=== PATIENT | male | born 1950 | race American Indian/Alaskan Native ===

== ENCOUNTER 2018-02-01 20:47 | Emergency (ER) | payer MEDICARE ==
[2018-02-01 21:17] VITALS: BMI 27.7
[2018-02-01 21:28] VITALS: RESP 18
--- NOTE | 2018-02-01 21:56 | ED PDOC ---
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 Patient states he was initially seen at [facility] s/p [facility] and treated, sent to [facility] for rehab for 1.5 months and was discharged 3 days ago. Patient states he was at home today watching wrestling on TV while laying on the cough and as he turned to reposition himself when he fell of the couch. Patient states that he usually has his girlfriend help him move and get around his home, but she had left to go to the store and returned after 30 minutes. Girlfriend found the patient on the floor and called EMS. Patient states when he fell, he injured his left hand and had pain initially but denies any pain currently. Patient states left-sided weakness, however he does have sensation to the left-side of his body. Patient denies any history of loss of consciousness, headache, neck pain, back pain, hip pain, other pain/injury, feeling dizzy or CP prior to the fall, or any other complaints. Symptom Onset: Gradual Symptom Course: Unchanged Activities at Onset: Light Context: Home <Katie Candelaria PA-C - Last Filed: 02/02/18 00:46> - General Chief Complaint: Trauma Time Seen by Provider: 02/01/18 21:56 Past Medical History - Provider Review Nursing Documentation Reviewed: Yes - Cardiac Hx Hypertension: Yes - Neurological HX Cerebrovascular Accident: Yes - HEENT Hx HEENT Disorder: No - Endocrine/Metabolic Hx Endocrine Disorders: No - Hematological/Oncological Hx Blood Disorders: No - Integumentary Hx Dermatological Disorder: No - Musculoskeletal/Rheumatological Hx Musculoskeletal Disorders: No - Gastrointestinal Hx Gastrointestinal Disorders: No - Genitourinary/Gynecological Hx Genitourinary Disorders: No - Psychiatric Hx Psychophysiologic Disorder: No Hx Substance Use: No <Katie Candelaria PA-C - Last Filed: 02/02/18 00:46> Family/Social History - Physician Review Nursing Documentation Reviewed: Yes Family/Social History: Unknown Family HX Smoking Status: Former Smoker Hx Alcohol Use: No Hx Substance Use: No <Katie Candelaria PA-C - Last Filed: 02/02/18 00:46> Allergies/Home Meds <Pollo Lopez - Last Filed: 02/01/18 22:22> <Katie Candelaria PA-C - Last Filed: 02/02/18 00:46> Allergies/Adverse Reactions: Allergies No Known Allergies Allergy (Verified 02/01/18 21:07) Home Medications: Home Meds Medication Instructions Recorded Confirmed Unobtainable 02/01/18 02/01/18 Review of Systems - Physician Review All systems were reviewed & negative as marked: Yes - Review of Systems Constitutional: Normal. absent: Fevers Eyes: Normal. absent: Vision Changes Respiratory: Normal. absent: SOB Cardiovascular: Normal. absent: Chest Pain Musculoskeletal: Arthralgias (+left hand pain) Neurological: Normal. absent: Headache, Dizziness <Katie Candelaria PA-C - Last Filed: 02/02/18 00:46> Physical Exam Vital Signs Pulse Resp BP Pulse Ox 02/01/18 21:27 70 18 136/87 97 <Pollo Lopez - Last Filed: 02/01/18 22:22> Vital Signs Reviewed: Yes Vital Signs Pulse Resp BP Pulse Ox 02/01/18 21:27 70 18 136/87 97 Temperature: Afebrile Blood Pressure: Normal Pulse: Regular Respiratory Rate: Normal Appearance: Positive for: Well-Appearing, Non-Toxic, Comfortable Pain Distress: None Mental Status: Positive for: Alert and Oriented X 3 - Systems Exam Head: Present: Atraumatic, Normocephalic Pupils: Present: PERRL Extroacular Muscles: Present: EOMI Conjunctiva: Present: Normal Mouth: Present: Moist Mucous Membranes Neck: Present: Normal Range of Motion. No: MIDLINE TENDERNESS Respiratory/Chest: Present: Clear to Auscultation, Good Air Exchange. No: Respiratory Distress, Accessory Muscle Use Cardiovascular: Present: Regular Rate and Rhythm, Normal S1, S2. No: Murmurs Abdomen: No: Tenderness, Distention, Peritoneal Signs Back: Present: Normal Inspection Upper Extremity: Present: NORMAL PULSES, Neurovascularly Intact, Capillary Refill < 2s, Other (Left arm weakness, 0/5, as compared to the right side). No: Cyanosis, Edema, Tenderness, Swelling Lower Extremity: Present: NORMAL PULSES, Neurovascularly Intact, Capillary Refill < 2 s, Other (Left leg weakness 2/5, as compared to the right side). No: Edema, Tenderness, Swelling Neurological: Present: GCS=15, CN II-XII Intact, Speech Normal, Normal Sensory Function Skin: Present: Warm, Dry, Normal Color. No: Rashes Psychiatric: Present: Alert, Oriented x 3, Normal Insight, Normal Concentration <Katie Candelaria PA-C - Last Filed: 02/02/18 00:46> Medical Decision Making ED Course and Treatment: 02/02/18 00:44 Patient had a mechanical fall off of his couch prompting ER visit. He has no obvious injuries and has no complaints of pain. He has no other complaints. Patient is stable for d/c and requires no other intervention at this time. <Katie Candelaria PA-C - Last Filed: 02/02/18 00:46> - PA / BRAKE SHOE REBUILDER / Resident Statement LIBAN has reviewed & agrees with the documentation as recorded. LIBAN has examined the patient and agrees with the treatment plan. <Pollo Lopez - Last Filed: 02/01/18 22:22> - PA / BRAKE SHOE REBUILDER / Resident Statement LIBAN has reviewed & agrees with the documentation as recorded. - Scribe Statement The provider has reviewed the documentation as recorded by the Blanquitaibmendel De Leon All medical record entries made by the Blanquitaibmendel were at my direction and personally dictated by me. I have reviewed the chart and agree that the record accurately reflects my personal performance of the history, physical exam, medical decision making, and the department course for this patient. I have also personally directed, reviewed, and agree with the discharge instructions and disposition. <Katie Candelaria PA-C - Last Filed: 02/02/18 00:46> Disposition/Present on Arrival <Pollo Lopez - Last Filed: 02/01/18 22:22> - Present on Arrival Any Indicators Present on Arrival: No History of DVT/PE: No History of Uncontrolled Diabetes: No Urinary Catheter: No History of Decub. Ulcer: No History Surgical Site Infection Following: None - Disposition Have Diagnosis and Disposition been Completed?: Yes Disposition Time: 21:56 <Katie Candelaria PA-C - Last Filed: 02/02/18 00:46> - Disposition Diagnosis: Fall Disposition: HOME/ ROUTINE Patient Problems: Current Active Problems Problem Status Onset Fall Acute Condition: STABLE Discharge Instructions (ExitCare): Preventing Falls Additional Instructions: Thank you for letting us take care of you today. You were evaluated for fall. The emergency medical care you received today was directed at your acute symptoms. Return to the Emergency Department if your symptoms worsen, do not improve, or if you have any other problems. Please contact your doctor in 2 days for re-evaluation and follow up. Bring any paperwork you were given at discharge with you along with any medications you are taking to your follow up visit. Our treatment cannot replace ongoing medical care by a primary care provider (PCP) outside of the emergency department. Thank you for allowing the [facility] team to be part of your care today. Referrals: PCP,NO [Primary Care Provider] - Follow up with primary Forms: [employer] (Czech)
[2018-02-02 01:34] VITALS: BP 143/88; PULSE 88; O2SAT 99
== END 2018-02-02 03:23 | disposition home or self-care (01) ==
LOC: ED 20:47
DX: Z04.3 Encounter for examination and observation following other accident (principal); W07.XXXA Fall from chair, initial encounter; Y92.008 Other place in unspecified non-institutional (private) residence as the place of occurrence of the external cause

== ENCOUNTER 2018-02-02 03:08 | Emergency (ER) | payer MEDICARE ==
[2018-02-02 03:24] VITALS: BMI 28.5
--- NOTE | 2018-02-02 03:33 | ED PDOC ---
Arrival/HPI - General Chief Complaint: Medical Clearance Time Seen by Provider: 02/02/18 03:26 Historian: Patient - History of Present Illness Narrative History of Present Illness (Text): 02/02/18 03:30 Roscoe Bautista is a 67 year old male, whose past medical history includes CVA with residual left-sided weakness, who presents to the Emergency department brought in by EMS after patient was discharged home earlier tonight and no one was home to receive the patient. EMS were unable to get in to the patient's apartment building and returned to the Emergency department with the patient. Patient was seen earlier tonight following a fall off of his couch and discharged home. Patient usually requires assistance from his girlfriend to move and get around the house. Patient denies any other complaints at this time. Patient denies any fever, chills, chest pain, shortness of breath, nausea, vomiting, diarrhea, urinary symptoms, back pain, neck pain, headache, dizziness, or any other complaints. Symptom Onset: Gradual Symptom Course: Unchanged Activities at Onset: Light Context: Home Past Medical History - Provider Review Nursing Documentation Reviewed: Yes - Cardiac Hx Hypertension: Yes - Neurological HX Cerebrovascular Accident: Yes - HEENT Hx HEENT Disorder: No - Endocrine/Metabolic Hx Endocrine Disorders: No - Hematological/Oncological Hx Blood Disorders: No - Integumentary Hx Dermatological Disorder: No - Musculoskeletal/Rheumatological Hx Musculoskeletal Disorders: No - Gastrointestinal Hx Gastrointestinal Disorders: No - Genitourinary/Gynecological Hx Genitourinary Disorders: No - Psychiatric Hx Psychophysiologic Disorder: No Hx Substance Use: No Family/Social History - Physician Review Nursing Documentation Reviewed: Yes Family/Social History: Unknown Family HX Smoking Status: Former Smoker Hx Alcohol Use: No Hx Substance Use: No Allergies/Home Meds Allergies/Adverse Reactions: Allergies No Known Allergies Allergy (Verified 02/02/18 03:26) Home Medications: Home Meds Medication Instructions Recorded Confirmed Unobtainable 02/01/18 02/01/18 Review of Systems - Physician Review All systems were reviewed & negative as marked: Yes - Review of Systems Constitutional: Normal. absent: Fevers Eyes: Normal ENT: Normal Respiratory: Normal. absent: SOB, Cough Cardiovascular: Normal. absent: Chest Pain Gastrointestinal: Normal. absent: Abdominal Pain, Diarrhea, Nausea, Vomiting Genitourinary Male: Normal. absent: Dysuria, Frequency, Hematuria, Urinary Output Changes Musculoskeletal: Normal. absent: Back Pain, Neck Pain Skin: Normal. absent: Rash Neurological: Normal. absent: Headache, Dizziness Endocrine: Normal Hemo/Lymphatic: Normal Psychiatric: Normal Physical Exam Vital Signs Reviewed: Yes Temperature: Afebrile Blood Pressure: Normal Pulse: Regular Respiratory Rate: Normal Appearance: Positive for: Well-Appearing, Non-Toxic, Comfortable Pain Distress: None Mental Status: Positive for: Alert and Oriented X 3 - Systems Exam Head: Present: Atraumatic, Normocephalic Pupils: Present: PERRL Extroacular Muscles: Present: EOMI Conjunctiva: Present: Normal Mouth: Present: Moist Mucous Membranes Neck: Present: Normal Range of Motion Respiratory/Chest: Present: Clear to Auscultation, Good Air Exchange. No: Respiratory Distress, Accessory Muscle Use Cardiovascular: Present: Regular Rate and Rhythm, Normal S1, S2. No: Murmurs Abdomen: No: Tenderness, Distention, Peritoneal Signs Back: Present: Normal Inspection Upper Extremity: Present: Other (Chronic residual left-upper extremity weakness). No: Cyanosis, Edema Lower Extremity: Present: Other (Chronic residual left-lower extremity weakness). No: Edema Neurological: Present: GCS=15, CN II-XII Intact, Speech Normal Skin: Present: Warm, Dry, Normal Color. No: Rashes Psychiatric: Present: Alert, Oriented x 3, Normal Insight, Normal Concentration Medical Decision Making ED Course and Treatment: 02/02/18 03:30 Impression: 67 year old male brought in after no one was home to receive the patient following discharge earlier tonight. Plan: -- Reassess and disposition Progress Notes: Pt awaiting access to his apartment in the morning when pt's partner is available to allow entrance. Patient had a mechanical fall off of his couch prompting ER visit. He has no obvious injuries and has no complaints of pain. He has no other complaints. Patient is stable for d/c and requires no other intervention at this time. - Scribe Statement Stephanie De Leon All medical record entries made by the Scribe were at my direction and personally dictated by me. I have reviewed the chart and agree that the record accurately reflects my personal performance of the history, physical exam, medical decision making, and the department course for this patient. I have also personally directed, reviewed, and agree with the discharge instructions and disposition. Disposition/Present on Arrival - Present on Arrival Any Indicators Present on Arrival: No History of DVT/PE: No History of Uncontrolled Diabetes: No Urinary Catheter: No History of Decub. Ulcer: No History Surgical Site Infection Following: None - Disposition Have Diagnosis and Disposition been Completed?: Yes Diagnosis: Fall Disposition: HOME/ ROUTINE Disposition Time: 06:02 Patient Problems: Current Active Problems Problem Status Onset Fall Acute Condition: STABLE Additional Instructions: Thank you for letting us take care of you today. You were evaluated for fall. The emergency medical care you received today was directed at your acute symptoms. Return to the Emergency Department if your symptoms worsen, do not improve, or if you have any other problems. Please contact your doctor in 2 days for re-evaluation and follow up. Bring any paperwork you were given at discharge with you along with any medications you are taking to your follow up visit. Our treatment cannot replace ongoing medical care by a primary care provider (PCP) outside of the emergency department. Thank you for allowing the [email or web address] team to be part of your care today. Forms: [employer] (Croatian)
[2018-02-02 06:50] VITALS: RESP 18
[2018-02-02 09:22] VITALS: O2SAT 99
[2018-02-02 09:29] VITALS: BP 154/98; PULSE 78; TEMP 98
== END 2018-02-02 09:29 | disposition home or self-care (01) ==
LOC: ED 03:08
DX: Z04.3 Encounter for examination and observation following other accident (principal); W07.XXXD Fall from chair, subsequent encounter

== ENCOUNTER 2018-02-03 01:12 | Emergency (ER) | payer MEDICARE ==
[2018-02-03 01:12] VITALS: BMI 27.7
--- NOTE | 2018-02-03 02:00 | ED PDOC ---
Arrival/HPI - General Chief Complaint: Trauma Time Seen by Provider: 02/03/18 01:19 Historian: Patient - History of Present Illness Narrative History of Present Illness (Text): 02/03/18 02:00 Roscoe Bautista is a 67 year old male, whose past medical history includes CVA with residual left-sided weakness, who presents to the Emergency department brought in by EMS after he slid off the couch. Patient states he lives at home with his girlfriend, and was sleeping on the couch when he slid off tonight. Patient's girlfriend called EMS to bring patient to the ED. Patient states he accidentally slid from the couch and denies any injuries or somatic complaints, but his girlfriend insisted he come to the ER. Patient denies any loss of consciousness, head trauma, headache, neck pain, back pain, dizziness, nausea, vomiting, or any other complaints. Patient states he argues with his girlfriend and is requesting to speak with social science instructor. Symptom Onset: Gradual Symptom Course: Unchanged Activities at Onset: Light Context: Home Past Medical History - Provider Review Nursing Documentation Reviewed: Yes - Cardiac Hx Hypertension: Yes - Neurological HX Cerebrovascular Accident: Yes - HEENT Hx HEENT Disorder: No - Endocrine/Metabolic Hx Endocrine Disorders: No - Hematological/Oncological Hx Blood Disorders: No - Integumentary Hx Dermatological Disorder: No - Musculoskeletal/Rheumatological Hx Musculoskeletal Disorders: No - Gastrointestinal Hx Gastrointestinal Disorders: No - Genitourinary/Gynecological Hx Genitourinary Disorders: No - Psychiatric Hx Psychophysiologic Disorder: No Hx Substance Use: No Family/Social History - Physician Review Nursing Documentation Reviewed: Yes Family/Social History: Unknown Family HX Smoking Status: Former Smoker Hx Alcohol Use: No Hx Substance Use: No Allergies/Home Meds Allergies/Adverse Reactions: Allergies No Known Allergies Allergy (Verified 02/03/18 01:21) Home Medications: Home Meds Medication Instructions Recorded Confirmed Unobtainable 02/01/18 02/03/18 Review of Systems - Physician Review All systems were reviewed & negative as marked: Yes - Review of Systems Constitutional: Normal. absent: Fevers Eyes: Normal ENT: Normal Respiratory: Normal. absent: SOB, Cough Cardiovascular: Normal. absent: Chest Pain Gastrointestinal: Normal. absent: Abdominal Pain, Diarrhea, Nausea, Vomiting Genitourinary Male: Normal. absent: Dysuria, Frequency, Hematuria, Urinary Output Changes Musculoskeletal: Normal. absent: Back Pain, Neck Pain Skin: Normal. absent: Rash Neurological: Normal. absent: Headache, Dizziness Endocrine: Normal Hemo/Lymphatic: Normal Psychiatric: Normal Physical Exam Vital Signs Reviewed: Yes Vital Signs Temp Pulse Resp BP Pulse Ox 02/03/18 01:18 98.3 F 85 18 128/78 100 Temperature: Afebrile Blood Pressure: Normal Pulse: Regular Respiratory Rate: Normal Appearance: Positive for: Well-Appearing, Non-Toxic, Comfortable Pain Distress: None Mental Status: Positive for: Alert and Oriented X 3 - Systems Exam Head: Present: Atraumatic, Normocephalic Pupils: Present: PERRL Extroacular Muscles: Present: EOMI Conjunctiva: Present: Normal Mouth: Present: Moist Mucous Membranes Neck: Present: Normal Range of Motion Respiratory/Chest: Present: Clear to Auscultation, Good Air Exchange. No: Respiratory Distress, Accessory Muscle Use Cardiovascular: Present: Regular Rate and Rhythm, Normal S1, S2. No: Murmurs Abdomen: No: Tenderness, Distention, Peritoneal Signs Back: Present: Normal Inspection Upper Extremity: Present: Normal Inspection. No: Cyanosis, Edema Lower Extremity: Present: Normal Inspection. No: Edema Neurological: Present: GCS=15, CN II-XII Intact, Speech Normal Skin: Present: Warm, Dry, Normal Color. No: Rashes Psychiatric: Present: Alert, Oriented x 3, Normal Insight, Normal Concentration Medical Decision Making ED Course and Treatment: 02/03/18 02:00 Impression: 67 year old male presents after sliding off couch, denies any complaints, requesting to speak with social science instructor. Plan: -- Reassess and disposition Prior Visits: Notes and results from previous visits were reviewed. Progress Notes: 02/03/18 07:[address] Sweet, pending social science instructor consult. - Scribe Statement The provider has reviewed the documentation as recorded by the Scribmendel De Leon All medical record entries made by the Scribe were at my direction and pe rsonally dictated by me. I have reviewed the chart and agree that the record accurately reflects my personal performance of the history, physical exam, medical decision making, and the department course for this patient. I have also personally directed, reviewed, and agree with the discharge instructions and disposition. Disposition/Present on Arrival - Present on Arrival Any Indicators Present on Arrival: No History of DVT/PE: No History of Uncontrolled Diabetes: No Urinary Catheter: No History of Decub. Ulcer: No History Surgical Site Infection Following: None - Disposition Have Diagnosis and Disposition been Completed?: No Diagnosis: Fall Disposition Time: 07:00 Condition: STABLE Forms: [employer] (Albanian)
--- NOTE | 2018-02-03 07:18 | ED PDOC ---
Physical Exam Vital Signs Temp Pulse Resp BP Pulse Ox 02/03/18 05:37 85 97 H 20 L 02/03/18 03:37 79 18 152/84 H 97 02/03/18 01:18 98.3 F 85 18 128/78 100 Medical Decision Making ED Course and Treatment: Signout obtained by Dr. hZou with patient pending social work consult. 02/03/18 09:00 Spoke to social work manager who will come down to speak to patient. 02/03/18 13:01 Spoke to social work manager who after consulting with Lyudmila, states patient may go back home. He was Disposition/Present on Arrival - Present on Arrival Any Indicators Present on Arrival: No History of DVT/PE: No History of Uncontrolled Diabetes: No Urinary Catheter: No History of Decub. Ulcer: No History Surgical Site Infection Following: None - Disposition Have Diagnosis and Disposition been Completed?: Yes Diagnosis: Fall, Inappropriate behavior Disposition Time: 12:59 Patient Plan: Discharge Patient Problems: Current Active Problems Problem Status Onset Fall Acute Inappropriate behavior Acute Condition: STABLE Discharge Instructions (ExitCare): Preventing Falls in the Older Adult Referrals: Nicci Cobb MD [Medical Doctor] - Follow up with primary [facility] at [facility] [Outside] - Follow up with primary Forms: [employer] (Estonian)
[2018-02-03 14:24] VITALS: RESP 17; TEMP 98.1
[2018-02-03 17:00] VITALS: BP 150/89; PULSE 82; O2SAT 97
== END 2018-02-03 17:00 | disposition home or self-care (01) ==
LOC: ED 01:12
DX: Z04.3 Encounter for examination and observation following other accident (principal); W07.XXXA Fall from chair, initial encounter; Y92.008 Other place in unspecified non-institutional (private) residence as the place of occurrence of the external cause

== ENCOUNTER 2018-02-06 03:14 | Emergency (ER) | payer MEDICARE ==
[2018-02-06 03:14] VITALS: BMI 27.7
--- NOTE | 2018-02-06 04:21 | ED PDOC ---
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 Patient states he fell asleep on the couch and when he turned, he slid and fell over. Patient's girlfriend called EMS to bring patient to the ED. Patient reports he slips off the couch a lot. He denies any head injury and denies being on blood thinners. Patient is complaining of chronic leg pain, but denies any fever, chills, chest pain, shortness of breath, nausea, vomiting, diarrhea, urinary symptoms, back pain, neck pain, headache, dizziness, or any other complaints. PMD: Dr. Pereira Time/Duration: Prior to Arrival Symptom Onset: Sudden Activities at Onset: Light, Sleeping Context: Home Past Medical History - Provider Review Nursing Documentation Reviewed: Yes - Cardiac Hx Hypertension: Yes - Neurological HX Cerebrovascular Accident: Yes - HEENT Hx HEENT Disorder: No - Endocrine/Metabolic Hx Endocrine Disorders: No - Hematological/Oncological Hx Blood Disorders: No - Integumentary Hx Dermatological Disorder: No - Musculoskeletal/Rheumatological Hx Musculoskeletal Disorders: No - Gastrointestinal Hx Gastrointestinal Disorders: No - Genitourinary/Gynecological Hx Genitourinary Disorders: No - Psychiatric Hx Psychophysiologic Disorder: No Hx Substance Use: No - Anesthesia Hx Anesthesia: No Family/Social History - Physician Review Nursing Documentation Reviewed: Yes Family/Social History: No Known Family HX Smoking Status: Former Smoker Hx Alcohol Use: No Hx Substance Use: No Allergies/Home Meds Allergies/Adverse Reactions: Allergies No Known Allergies Allergy (Verified 02/03/18 01:21) Home Medications: Home Meds Medication Instructions Recorded Confirmed RX: No Known Home Med 02/06/18 02/06/18 Review of Systems - Physician Review All systems were reviewed & negative as marked: Yes - Review of Systems Constitutional: absent: Fevers, Other (Chills) Respiratory: absent: SOB Cardiovascular: absent: Chest Pain Gastrointestinal: absent: Abdominal Pain, Diarrhea, Nausea Genitourinary Male: absent: Dysuria, Frequency, Hematuria Musculoskeletal: absent: Back Pain, Neck Pain, Other (chronic leg pain) Neurological: absent: Headache, Dizziness Physical Exam Vital Signs Reviewed: Yes Vital Signs Temp Pulse Resp BP Pulse Ox 02/06/18 03:37 98.0 F 75 17 163/90 H 98 Temperature: Afebrile Blood Pressure: Hypertensive Pulse: Regular Respiratory Rate: Normal Appearance: Positive for: Well-Appearing, Non-Toxic, Comfortable Pain Distress: None Mental Status: Positive for: Alert and Oriented X 3 - Systems Exam Head: Present: Atraumatic, Normocephalic Pupils: Present: PERRL Extroacular Muscles: Present: EOMI Conjunctiva: Present: Normal Mouth: Present: Moist Mucous Membranes Neck: Present: Normal Range of Motion Respiratory/Chest: Present: Clear to Auscultation, Good Air Exchange. No: Respiratory Distress, Accessory Muscle Use Cardiovascular: Present: Regular Rate and Rhythm, Normal S1, S2. No: Murmurs Abdomen: No: Tenderness, Distention, Peritoneal Signs Back: Present: Normal Inspection Upper Extremity: Present: Normal Inspection. No: Cyanosis, Edema Lower Extremity: Present: Normal Inspection. No: Edema Neurological: Present: GCS=15, CN II-XII Intact, Speech Normal Skin: Present: Warm, Dry, Normal Color. No: Rashes Psychiatric: Present: Alert, Oriented x 3, Normal Insight, Normal Concentration Medical Decision Making ED Course and Treatment: 02/06/18 04:15 Impression: 67 year old male presents for evaluation s/p slid off couch prior to arrival. Negative [place] ankle to the right and left leg. Plan: -- Tylenol -- Reassess and disposition Prior Visits: Notes and results from previous visits were reviewed. Patient was last seen in the emergency department on 02/03/18 presents s/p slid off couch. Patient spoke to social media content manager and was discharged home. Progress Notes: reassessed: pt in NAD, remains N/V intact in distal LE. Normal Neuro exam. Clear for d/c home - Scribe Statement The provider has reviewed the documentation as recorded by the Liliana Joseph Provider Scribe Attestation: All medical record entries made by the Scribe were at my direction and personally dictated by me. I have reviewed the chart and agree that the record accurately reflects my personal performance of the history, physical exam, medical decision making, and the department course for this patient. I have also personally directed, reviewed, and agree with the discharge instructions and disposition. Disposition/Present on Arrival - Present on Arrival Any Indicators Present on Arrival: No History of DVT/PE: No History of Uncontrolled Diabetes: No Urinary Catheter: No History of Decub. Ulcer: No History Surgical Site Infection Following: None - Disposition Have Diagnosis and Disposition been Completed?: Yes Diagnosis: Chronic leg pain Disposition: HOME/ ROUTINE Disposition Time: 05:07 Condition: GOOD Discharge Instructions (ExitCare): Chronic Pain (DC) Additional Instructions: REGIS DA SILVA, thank you for letting us take care of you today. Your provider was Cody Jasso and you were treated for LEG PAIN. The emergency medical care you received today was directed at your acute symptoms. If you were prescribed any medication, please fill it and take as directed. It may take several days for your symptoms to resolve. Return to the Emergency Department if your symptoms worsen, do not improve, or if you have any other problems. Please contact your doctor or call one of the physicians/clinics you have been referred to that are listed on the Patient Visit Information form that is included in your discharge packet. Bring any paperwork you were given at discharge with you along with any medications you are taking to your follow up visit. Our treatment cannot replace ongoing medical care by a primary care provider outside of the emergency department. Thank you for allowing the [facility] team to be part of your care today. If you had an X-Ray or CT scan: A Radiologist will review the ED reading if any change in treatment is needed we will contact you. If you had a blood, urine, or wound culture: It will take several days for the results, if any change in treatment is needed we will contact you. If you had an STI test: It will take 48 hours for the results. Please call after 1 week if you have not heard back. Referrals: Nicci Cobb MD [Medical Doctor] - Follow up with primary Forms: [employer] ([place])
[2018-02-06 09:14] VITALS: TEMP 97.6; O2SAT 98
[2018-02-06 09:39] VITALS: BP 145/86; PULSE 80; RESP 17
== END 2018-02-06 09:20 | disposition home or self-care (01) ==
LOC: ED 03:14
DX: G89.29 Other chronic pain (principal); M79.606 Pain in leg, unspecified; I10 Essential (primary) hypertension; Z87.891 Personal history of nicotine dependence

== ENCOUNTER 2018-02-09 20:01 | Inpatient (IN) | payer MEDICARE, OTHER ==
[2018-02-09 20:04] VITALS: BMI 27.7
--- NOTE | 2018-02-09 20:37 | ED PDOC ---
Arrival/HPI - General Historian: Patient - History of Present Illness Narrative History of Present Illness (Text): 02/09/18 20:34 67 y/o male, pmh including CVA with chronic lt. upper extremity weakness from the stroke 2 months ago and chronic history of frequent fall, nkda, send in by ambulance for mechanical fall. Pt. stated that he was resting on the couch, trying to get up to go bathroom and fall back down to the couch, been on going, seen in the ER about 2 days ago for fall, never had a follow up, no head/neck/back/extremity/chest/abdominal injury or pain, no LOC, no chest pain or shortness of breath, no night sweat, no dizziness, no change in vision, no other medical or psychological complaints. <Stan Petersen - Last Filed: 02/10/18 00:53> <Liam Leonard - Last Filed: 02/10/18 05:43> - General Chief Complaint: Trauma Time Seen by Provider: 02/09/18 20:22 Past Medical History - Provider Review Nursing Documentation Reviewed: Yes - Cardiac Hx Hypertension: Yes - Neurological HX Cerebrovascular Accident: Yes - HEENT Hx HEENT Disorder: No - Endocrine/Metabolic Hx Endocrine Disorders: No - Hematological/Oncological Hx Blood Disorders: No - Integumentary Hx Dermatological Disorder: No - Musculoskeletal/Rheumatological Hx Musculoskeletal Disorders: No - Gastrointestinal Hx Gastrointestinal Disorders: No - Genitourinary/Gynecological Hx Genitourinary Disorders: No - Psychiatric Hx Psychophysiologic Disorder: No Hx Substance Use: No - Anesthesia Hx Anesthesia: No <Stan Petersen - Last Filed: 02/10/18 00:53> Family/Social History - Physician Review Nursing Documentation Reviewed: Yes Family/Social History: Unknown Family HX Smoking Status: Former Smoker Hx Alcohol Use: No Hx Substance Use: No <Stan Petersen - Last Filed: 02/10/18 00:53> Allergies/Home Meds <Stan Petersen - Last Filed: 02/10/18 00:53> <Liam Leonard - Last Filed: 02/10/18 05:43> Allergies/Adverse Reactions: Allergies No Known Allergies Allergy (Verified 02/03/18 01:21) Home Medications: Home Meds Medication Instructions Recorded Confirmed RX: No Known Home Med 02/06/18 02/06/18 Review of Systems - Review of Systems Constitutional: absent: Fatigue, Fevers Eyes: absent: Vision Changes ENT: absent: Hearing Changes Respiratory: absent: SOB, Cough Cardiovascular: absent: Chest Pain Gastrointestinal: absent: Abdominal Pain, Nausea, Vomiting Musculoskeletal: absent: Arthralgias, Back Pain Skin: absent: Rash, Pruritis Neurological: absent: Headache, Dizziness Psychiatric: absent: Anxiety, Depression, Suicidal Ideation <Stan Petersen Q - Last Filed: 02/10/18 00:53> Physical Exam Vital Signs Reviewed: Yes Vital Signs Temp Pulse Resp BP Pulse Ox 02/09/18 20:18 98.6 F 98 H 18 153/96 H 99 Temperature: Afebrile Blood Pressure: Hypertensive Pulse: Regular Respiratory Rate: Normal Appearance: Positive for: Well-Appearing, Non-Toxic, Comfortable Pain Distress: None Mental Status: Positive for: Alert and Oriented X 3 - Systems Exam Head: Present: Atraumatic, Normocephalic, Other (no facial bony tenderness or swelling. ). No: Tenderness, Contusion, Swelling, Ecchymosis, Abrasion, Laceration Pupils: Present: PERRL Extroacular Muscles: Present: EOMI Conjunctiva: Present: Normal Ears: Present: NORMAL TM, Normal Canal. No: Erythema Mouth: Present: Moist Mucous Membranes Pharnyx: Present: Normal. No: ERYTHEMA, EXUDATE, TONSILS ENLARGED Nose (Internal): Present: Normal Inspection, No Active Bleeding. No: Rhinorrhea, Septal Hematoma, Epistaxis Neck: Present: Normal Range of Motion, Trachea Midline. No: Meningeal Signs, MIDLINE TENDERNESS, Paraspinal Tenderness, Lymphadenopathy Respiratory/Chest: Present: Clear to Auscultation, Good Air Exchange. No: Respiratory Distress, Accessory Muscle Use Cardiovascular: Present: Regular Rate and Rhythm, Normal S1, S2. No: Murmurs Abdomen: No: Tenderness, Distention, Peritoneal Signs, Rebound, Guarding Back: Present: Normal Inspection. No: CVA Tenderness, Midline Tenderness, Paraspinal Tenderness, Pain with Leg Raise, Decubitus Ulcer Upper Extremity: Present: Normal Inspection, Normal ROM, NORMAL PULSES, Neurovascularly Intact, Capillary Refill < 2s. No: Cyanosis, Edema, Tenderness, Swelling, Deformity Lower Extremity: Present: Normal Inspection, NORMAL PULSES, Normal ROM, Neurovascularly Intact, Capillary Refill < 2 s. No: Edema, Tenderness, Swelling, Deformity Neurological: Present: GCS=15, CN II-XII Intact, Speech Normal, Memory Normal, Other (LUE deficits from the stroke. ) Skin: Present: Warm, Dry, Normal Color. No: Rashes Psychiatric: Present: Alert, Oriented x 3, Normal Insight, Normal Concentration <Stan Petersen - Last Filed: 02/10/18 00:53> Vital Signs Temp Pulse Resp BP Pulse Ox 02/10/18 01:50 97 H 18 155/100 H 99 02/10/18 01:06 96 H 18 154/92 H 100 02/09/18 23:30 88 18 149/89 100 02/09/18 20:18 98.6 F 98 H 18 153/96 H 99 <Liam Leonard - Last Filed: 02/10/18 05:43> Medical Decision Making ED Course and Treatment: 02/09/18 20:38 -CT head -Labs -UA -Observe and reassess 02/09/18 23:45 -CT head: show infarcts are described above. No acute intracranial hemorrhage. The calvarium is intact. (discussed and reviewed with Dr. Leonard, agreed this is chronic infarct findings). Pt. has no new focal neurological deficits. -Labs show no acute findings -UA ordered and pending result. -Pt. has been falling consistently due to the weakness from the CVA 2 months ago, would need to be admitted for physical therapy and gait training. -All labs and radiology result discussed with the patient and he agreed to the admission. 02/10/18 00:12 -I spoke to Dr. Cobb, discussed about the case/labs/radiology result and frequent visit for the fall recently, would need to be over night observation and neurologist/PT evaluation. She would admit and continuous care. - RAD Interpretation Radiology Orders: 02/09/18 20:30 HEAD W/O CONTRAST [CT] Stat CT Head reviewed by radiologist, shows: BRAIN there are been several infarcts. There is an infarct within the left frontal lobe which appears nonrecent secondary to the lack of mass effect and sharp m argins. there is a moderately large poorly defined right lacunar infarct without hemorrhage which descends along the white matter tracts. there is volume loss in the right cerebral hemisphere resulting in asymmetric lateral ventricles. there is no intracranial hemorrhage, subdural collections, or midline shift. IMPRESSION infarcts are described above. No acute intracranial hemorrhage. The calvarium is intact. MRI for further evaluation as clinically warranted. Investigations Manager: Radiologist - EKG Interpretation EKG Interpretation (Text): 02/10/18 00:53 NSR @ 89 BPM, no ST elevation or depression, no T wave inversion. Interpreted by ED Physician: Yes Type: 12 lead EKG <Stan Petersen Q - Last Filed: 02/10/18 00:53> - Lab Interpretations Lab Results: 02/09/18 20:54 02/09/18 20:54 Lab Results 02/09/18 20:54: Troponin I 0.02 02/09/18 20:54: Total Creatine Kinase 116 02/09/18 20:54: Sodium 142, Potassium 4.3, Chloride 106, Carbon Dioxide 28, Anion Gap 12, BUN 18, Creatinine 1.0, Est GFR ( Amer) > 60, Est GFR (Non- Af Amer) > 60, Random Glucose 199 H, Calcium 9.2, Magnesium 1.8, Total Bilirubin 0.3, AST 25, ALT 21, Alkaline Phosphatase 77, Total Protein 7.1, Albumin 3.7, Globulin 3.4, Albumin/Globulin Ratio 1.1 02/09/18 20:54: WBC 5.4, RBC 4.75, Hgb 13.1 L, Hct 39.7 L, MCV 83.6, MCH 27.6, MCHC 33.0, RDW 13.2, Plt Count 205, MPV 10.0, Gran % 56.2, Lymph % (Auto) 32.6, [place] % (Auto) 5.3, Eos % (Auto) 5.7 H, Baso % (Auto) 0.2, Gran # 3.05, Lymph # (Auto) 1.8, [place] # (Auto) 0.3, Eos # (Auto) 0.3, Baso # (Auto) 0.01 - RAD Interpretation Radiology Orders: 02/09/18 20:30 HEAD W/O CONTRAST [CT] Stat - Medication Orders Current Medication Orders: Heparin Sodium (Porcine) (Heparin) 5,000 units SC Q8 LILLY; Protocol Insulin Human Lispro (Humalog Low) 0 units SC ACHS LILLY; Protocol Discontinued Medications Hydralazine HCl (Apresoline) 10 mg PO STAT STA Stop: 02/10/18 03:45 Last Admin: 02/10/18 03:57 Dose: 10 mg MAR Pulse and Blood Pressure Document 02/10/18 03:57 [facility] (Rec: 02/10/18 03:57 [id number]) Pulse Pulse Rate (60-90) 91 Blood Pressure Blood Pressure (100/60-150/90) 176/110 Labetalol HCl (Trandate) 10 mg IV ONCE ONE Stop: 02/10/18 05:03 <Liam Leonard - Last Filed: 02/10/18 05:43> - PA / CARDIAC CATH RN / Resident Statement LIBAN has reviewed & agrees with the documentation as recorded. <Stan Petersen - Last Filed: 02/10/18 00:53> - PA / CARDIAC CATH RN / Resident Statement / has reviewed & agrees with the documentation as recorded. <Liam Leonard - Last Filed: 02/10/18 05:43> Disposition/Present on Arrival - Present on Arrival Any Indicators Present on Arrival: No History of DVT/PE: No History of Uncontrolled Diabetes: No Urinary Catheter: No History of Decub. Ulcer: No History Surgical Site Infection Following: None - Disposition Have Diagnosis and Disposition been Completed?: Yes Disposition Time: 22:12 Patient Plan: Admission <Stan Petersen - Last Filed: 02/10/18 00:53> - Present on Arrival Any Indicators Present on Arrival: No - Disposition Have Diagnosis and Disposition been Completed?: Yes <Liam Leonard - Last Filed: 02/10/18 05:43> - Disposition Diagnosis: Frequent falls, Weakness Disposition: HOSPITALIZED Patient Problems: Current Active Problems Problem Status Onset Frequent falls Acute Weakness Acute Condition: GOOD
[2018-02-09 20:58] LABS: BASO # 0.01 K/mm3 (0.0-2.0); BASO % 0.2 % (0.0-3.0); EOS # 0.3 (0.0-0.7); EOS % 5.7 % (1.5-5.0); GRAN # 3.05 (1.4-6.5); GRAN % 56.2 % (50.0-68.0); HEMOGLOBIN 13.1 g/dL (14.0-18.0); LYMPH # 1.8 (1.2-3.4); LYMPH % 32.6 % (22.0-35.0); MEAN CELL VOLUME 83.6 fl (80.0-105.0); MEAN CORPUSCULAR HEMOGLOBIN 27.6 pg (25.0-35.0); MONO # 0.3 (0.1-0.6); MONO % 5.3 % (1.0-6.0); RBC 4.75 10^6/uL (3.5-6.1); RED CELL DISTRIBUTION WIDTH 13.2 % (11.5-14.5); WHITE BLOOD COUNT 5.4 10^3/ul (4.5-11.0)
[2018-02-09 21:09] LABS: ALB/GLOB RATIO 1.1 (1.1-1.8); ALBUMIN 3.7 g/dL (3.0-4.8); ALT/SGPT 21 U/L (7-56); AST/SGOT 25 U/L (17-59); BLOOD UREA NITROGEN 18 mg/dL (7-21); CALCIUM 9.2 mg/dL (8.4-10.5); GFR NON-AFRICAN AMERICAN > 60
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
[2018-02-10] MEDS ORDERED: Labetalol 5 mg/ml Inj 20ML IV ONE (05:02)
[2018-02-10] MEDS: Insulin Lispro (humaLOG) LOW Coverage SC SCH ×3 (08:00→21:59)
--- NOTE | 2018-02-10 08:28 | CT ---
Date of service: 02/09/2018 PROCEDURE: CT HEAD WITHOUT CONTRAST. HISTORY: fall, head injury? COMPARISON: None available. TECHNIQUE: Axial computed tomography images were obtained through the head/brain without intravenous contrast. Supplemental Coronal and Sagittal projections created and reviewed. Radiation dose: Total exam DLP = 1018.71 mGy-cm. This CT exam was performed using one or more of the following dose reduction techniques: Automated exposure control, adjustment of the mA and/or kV according to patient size, and/or use of iterative reconstruction technique. FINDINGS: HEMORRHAGE: No intracranial hemorrhage. BRAIN: No mass effect or edema. Cortical and cerebellar atrophy, periventricular small vessel disease. VENTRICLES: Unremarkable. No hydrocephalus. CALVARIUM: Unremarkable. PARANASAL SINUSES: Unremarkable as visualized. No significant inflammatory changes. MASTOID AIR CELLS: Unremarkable as visualized. No inflammatory changes. OTHER FINDINGS: None. IMPRESSION: No acute intracranial abnormalities. No significant findings to account for the clinical presentation. Concordant results (preliminary interpretation) provided by [employer]. Procedure Completed: 21:27. Preliminary Report: Dictated and Authenticated: 21:54. Final Interpretation: 09:24. February 10, 2018
[2018-02-10] MEDS ORDERED: Dextrose 50% SYRINGE Inj (50 ml) IV PRN (09:04)
[2018-02-10 10:28] LABS: BASO # 0.02 K/mm3 (0.0-2.0); BASO % 0.3 % (0.0-3.0); EOS # 0.3 (0.0-0.7); EOS % 4.6 % (1.5-5.0); GRAN # 3.54 (1.4-6.5); GRAN % 60.6 % (50.0-68.0); HEMOGLOBIN 12.8 g/dL (14.0-18.0); LYMPH # 1.8 (1.2-3.4); LYMPH % 29.9 % (22.0-35.0); MEAN CELL VOLUME 82.4 fl (80.0-105.0); MEAN CORPUSCULAR HEMOGLOBIN 27.2 pg (25.0-35.0); MEAN PLATELET VOLUME 10.2 fl (7.0-11.0); MONO # 0.3 (0.1-0.6); MONO % 4.6 % (1.0-6.0); RBC 4.71 10^6/uL (3.5-6.1); RED CELL DISTRIBUTION WIDTH 13.3 % (11.5-14.5); WHITE BLOOD COUNT 5.9 10^3/ul (4.5-11.0)
--- NOTE | 2018-02-10 10:35 | CARD ---
APPROVED REPORT Date of service: 02/10/2018 EKG Measurement Heart [id number] <Conclusion> Normal sinus rhythm Left axis deviation Nonspecific T wave abnormality Abnormal ECG
--- NOTE | 2018-02-10 10:35 | CARD ---
APPROVED REPORT Date of service: 02/10/2018 EKG Measurement Heart [id number] <Conclusion> Normal sinus rhythm Left axis deviation Possible Inferior infarct, age Old? Non Specific ST_T Changes.
[2018-02-10 10:44] LABS: ALBUMIN 3.6 g/dL (3.0-4.8); ALT/SGPT 21 U/L (7-56); AST/SGOT 20 U/L (17-59); BLOOD UREA NITROGEN 17 mg/dL (7-21); GFR NON-AFRICAN AMERICAN > 60; HDL CHOLESTEROL 22 mg/dL (29-60)
[2018-02-10 10:54] LABS: LDL CHOLESTEROL 70 mg/dL (0-129)
[2018-02-10 10:55] LABS: TROPONIN I 0.02 ng/mL
--- NOTE | 2018-02-10 11:17 | US ---
PROCEDURE: Bilateral carotid artery duplex ultrasound HISTORY: Carotid stenosis possible vertebral basilar insufficiency. PHYSICIAN(S): Gage Damon MD. TECHNIQUE: Duplex sonography and color-flow Doppler were used to evaluate the carotid bifurcations and limited segments of the vertebral arteries bilaterally. FINDINGS: There is moderate to extensive smooth diffuse heterogeneous plaque noted at the carotid bifurcations bilaterally. The peak systolic velocity in the proximal right internal carotid artery is 162 cm/sec. This corresponds to a 60-79 percent proximal right ICA stenosis. Normal systolic velocities are noted in the proximal right external carotid artery. There is antegrade flow in the right vertebral artery. The peak systolic velocity in the proximal left internal carotid artery is 191 cm/sec. This corresponds to a 60-79 percent proximal left ICA stenosis. Normal systolic velocities are noted in the proximal left external carotid artery. The left vertebral artery is not visualized and may be occluded IMPRESSION: 1. Bilateral 60-79 percent ICA stenoses. 2. Antegrade flow in the right vertebral artery. The left vertebral artery is not visualized and may be occluded. If suspicion for vertebral basilar insufficiency is high, consider an MRA with gadolinium evaluation of the arch and cervical vessels
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
[2018-02-10] MEDS: Potassium Chloride 10 mEq ER Tab PO SCH (16:24)
[2018-02-10] MEDS: POLYETHYLENE GLYCOL 3350 17 GM/Dose PACKET PO SCH (17:22)
[2018-02-10] MEDS: Sodium Chloride 0.9% 1,000 ML IV SCH (17:26)
[2018-02-10] MEDS: Insulin Detemir 100 units/ml Vial (Levemir) SC SCH (21:59)
--- NOTE | 2018-02-10 23:33 | CON ---
DATE: 02/10/2018 CARDIOLOGY CONSULT REASON FOR CONSULTATION: CVA and multiple falls. 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 Apparently, the patient was sent to rehab, but he signed against medial advice and he sustained a fall at home yesterday. The patient stated that his girlfriend was at next door when she heard a slump. She did activate EMS and the patient was brought to the emergency room. The patient related the fall to his imbalance and he denies any dizziness or fainting. The patient is unaware of any prior cardiac history in the past. SOCIAL HISTORY: The patient is a light smoker. He lives with the girlfriend. He has 3 daughters. MEDICATIONS: Hydralazine 10 mg intravenously every 6 hours p.r.n., aspirin 81 mg once a day, Cardura 1 mg daily, Colace 100 mg twice a day, Coreg 12.5 mg once a day, Cozaar 100 mg once a day, heparin 5000 units subcutaneously every 8 hours, Levemir 16 units subcutaneously daily, Lipitor 40 mg once a day, Pepcid 20 mg once a day, Plavix 75 mg once a day. REVIEW OF SYSTEMS: No nausea or vomiting. No fever or chills and no retrosternal chest pain. PHYSICAL EXAMINATION: GENERAL: The patient is an elderly male who does not appear to be in acute distress. VITAL SIGNS: Most recent blood pressure 138/89; heart rate 109, however, earlier blood pressures today revealed sustained diastolic hypertension. HEENT: Normocephalic. CHEST: Clear. HEART: S1 and S2, regular. ABDOMEN: Soft. EXTREMITIES: No edema. LABORATORY DATA: Today's SMA-7; sodium 140, potassium 3.6, chloride 108, CO2 of 25, glucose 141, BUN 17, creatinine 0.9. Troponin 0.02 twice. Hemoglobin and hematocrit 12.8 and 38.8, white count and platelet count are within normal limit. Carotid ultrasound, bilateral 60% to 79% internal carotid artery stenosis. Antegrade flow in the right vertebral artery. The left vertebral artery is not visualized and may be occluded. EKG revealed sinus rhythm, nonspecific ST-T wave changes. Head CT scan without contrast, no acute intracranial abnormality. ASSESSMENT: 1. History of recent cerebrovascular accident with residual left hemiparesis. 2. Status post fall. 3. Uncontrolled hypertension. 4. Bilateral internal carotid artery disease with possible left vertebral artery occlusion. RECOMMENDATIONS: Continue hydralazine 10 mg intravenously every 6 hours p.r.n. Continue Cardura 1 mg daily, Coreg 12.5 mg once a day, Cozaar 100 mg once a day. Start hydrochlorothiazide 25 mg orally daily. Continue Plavix 75 mg once a day. Start K-Dur 10 mEq once a day. Obtain an echocardiogram. Inderjit Henson MD
[2018-02-11] MEDS: Sodium Chloride 0.9% 1,000 ML IV SCH (02:32)
[2018-02-11] MEDS: Insulin Lispro (humaLOG) LOW Coverage SC SCH ×4 (07:06→22:19)
--- NOTE | 2018-02-11 07:15 | CP.PCM.PN ---
<Thomas Jacobo - Last Filed: 02/11/18 22:41> Subjective - Date & Time of Evaluation Date of Evaluation: 02/11/18 Time of Evaluation: 07:13 - Subjective Subjective: Thomas Jacobo DO PGY1 - Internal Medicine Leadership Development Manager - Hospital Progress Note Patient was seen and examined at bedside this morning ON: BP is still elevated, and patient is refusing blood work. Patient complaining that he does not like needles and is getting lab work too often.; Counseled on necessity of lab work Patient explained plan moving forward is for rehab; he is requesting [facility] abd pain, n/v/d/c, ESTEVEZ, dizziness, cp, sob, cough. No other complaints voiced 12 system ros is negative at this time Objective - Vital Signs/Intake and Output Vital Signs (last 24 hours): Temp Pulse Resp BP Pulse Ox 98.8 F 90 18 145/84 96 02/10/18 22:00 02/10/18 22:00 02/10/18 22:00 02/10/18 22:00 02/10/18 22:00 Intake and Output: 02/11/18 02/11/18 06:59 18:59 Intake Total 1800 Output Total 3 Balance 1797 - Medications Medications: Current Medications Aspirin (Aspirin Chewable) 81 mg PO DAILY [facility] Last Admin: 02/10/18 10:08 Dose: 81 mg Atorvastatin Calcium (Lipitor) 40 mg PO HS [facility] Last Admin: 02/10/18 21:23 Dose: 40 mg Carvedilol (Coreg) 12.5 mg PO BID [facility] Last Admin: 02/10/18 10:08 Dose: 12.5 mg Clopidogrel Bisulfate (Plavix) 75 mg PO DAILY [facility] Last Admin: 02/10/18 10:08 Dose: 75 mg Dextrose (Dextrose 50% Inj) 0 ml IV STAT PRN; Protocol PRN Reason: Hypoglycemia Protocol Docusate Sodium (Colace) 100 mg PO BID [facility] Doxazosin Mesylate (Cardura) 1 mg PO Q24H [facility] Last Admin: 02/10/18 16:24 Dose: 1 mg Famotidine (Pepcid) 40 mg PO HS [facility] Last Admin: 02/10/18 21:23 Dose: 40 mg Heparin Sodium (Porcine) (Heparin) 5,000 units SC Q8 [facility]; Protocol Last Admin: 02/11/18 05:00 Dose: Not Given Hydralazine HCl (Apresoline) 10 mg IVP Q6 PRN PRN Reason: Systolic Blood Pressure Last Admin: 02/10/18 07:59 Dose: 10 mg Hydrochlorothiazide (Hydrodiuril) 25 mg PO DAILY [facility] Last Admin: 02/10/18 16:26 Dose: 25 mg Dextrose (Dextrose 5% In Water 1000 Ml) 1,000 mls @ 0 mls/hr IV .Q0M PRN; Protocol PRN Reason: Hypoglycemia Protocol Sodium Chloride (Sodium Chloride 0.9%) 1,000 mls @ 100 mls/hr IV .Q10H [facility] Last Admin: 02/11/18 02:32 Dose: 100 mls/hr Insulin Detemir (Levemir) 16 unit SC HS [facility] Last Admin: 02/10/18 21:59 Dose: Not Given Insulin Human Lispro (Humalog Low) 0 units SC ACHS [facility]; Protocol Last Admin: 02/11/18 07:06 Dose: Not Given Losartan Potassium (Cozaar) 100 mg PO DAILY [facility] Last Admin: 02/10/18 10:11 Dose: 100 mg Polyethylene Glycol (Miralax) 17 gm PO BID [facility] Last Admin: 02/10/18 17:22 Dose: 17 gm Potassium Chloride (Klor-Con 10) 10 meq PO BRK [facility] Last Admin: 02/10/18 16:24 Dose: 10 meq - Labs Labs: 02/10/18 10:20 02/10/18 10:20 - Constitutional Appears: Well, Non-toxic, No Acute Distress - Head Exam Head Exam: ATRAUMATIC, NORMOCEPHALIC Additional comments: R sided facial droop - Eye Exam Eye Exam: EOMI, Normal appearance, PERRL. absent: Scleral icterus - ENT Exam ENT Exam: Mucous Membranes Moist - Respiratory Exam Respiratory Exam: Clear to Ausculation Bilateral, NORMAL BREATHING PATTERN. absent: Rales, Rhonchi, Wheezes - Cardiovascular Exam Cardiovascular Exam: REGULAR RHYTHM, RRR, +S1, +S2. absent: Murmur - GI/Abdominal Exam GI & Abdominal Exam: Soft, Normal Bowel Sounds. absent: Tenderness - Extremities Exam Additional comments: LUE weakness 0/5 gross strength LLE has 1/5 gross strength Sensation is intact RUE/LUE 5/5 gross strength Distal pulses 2+ BL ; No edema - Neurological Exam Neurological Exam: Alert, Awake - Psychiatric Exam Additional comments: Repetitive upon questioning; poor insight - Skin Skin Exam: Dry, Intact, Normal Color, Warm Assessment and Plan - Assessment and Plan (Free Text) Assessment: 67 year old male with PMHx CVA L sided residual weakness, HTN, DM, who presents after recent fall at home. Patient has had multiple ED visits over past week. PT eval completed recommend discharge to acute rehab Plan: Mechanical falls 2/2 arrythmia vs vertebrobasilar insufficiency vs orthostatics vs electrolyte abnormality vs infection CT head without contrast reviewed by radiologist, shows: there are been several infarcts. There is an infarct within the left frontal lobe which appears nonrecent secondary to the lack of mass effect and sharp margins. there is a moderately large poorly defined right lacunar infarct without hemorrhage which descends along the white matter tracts. there is volume loss in the right cerebral hemisphere resulting in asymmetric lateral ventricles. there is no intracranial hemorrhage, subdural collections, or midline shift. CTA head/neck - unremarkable Carotid + Vertebral Duplex - 60-79% Bilateral stenosis Seizure and Fall Precautions, PT -Can benefit from acute rehab OT - reccs pending Neuro consulted - Dr. Boykin- recommendations: Further rehab for stroke C/w -ASA 81, Plavix 75mg PO daily, Lipitor 40mg PO Uncontrolled HTN 190/110 shortly after admission; BP Improving 160s/90 HCTz 25 qd., Cozaar 100 qd, Coreg 12.5 BID, Cadura 1 QD ECHO EF 55% - 02/11/2018 Cardiology consulted - Dr. Henson- recommendations appreciated Constipation: Mialax + Colace Diabetes Levemir 16HS + ISS Low Education and gas line servicer referral consulted [facility] GI/DVT Ppx Heparin Pepcid 40 Patient seen, examined, and discussed w/ attending physician Dr. Gris Jacobo DO PGY1 - Internal Medicine Leadership Development Manager - Pager [phone] <Gris Jacobo R - Last Filed: 02/15/18 20:10> Objective - Vital Signs/Intake and Output Vital Signs (last 24 hours): Temp Pulse Resp BP Pulse Ox 98.6 F 89 18 154/84 H 100 02/15/18 06:00 02/15/18 06:00 02/15/18 06:00 02/15/18 17:06 02/15/18 06:00 - Medications Medications: Current Medications Aspirin (Aspirin Chewable) 81 mg PO DAILY [facility] Last Admin: 02/15/18 09:57 Dose: 81 mg Atorvastatin Calcium (Lipitor) 40 mg PO HS [facility] Last Admin: 02/14/18 22:17 Dose: Not Given Carvedilol (Coreg) 12.5 mg PO BID [facility] Last Admin: 02/15/18 17:06 Dose: 12.5 mg Clopidogrel Bisulfate (Plavix) 75 mg PO DAILY [facility] Last Admin: 02/15/18 09:56 Dose: 75 mg Dextrose (Dextrose 50% Inj) 0 ml IV STAT PRN; Protocol PRN Reason: Hypoglycemia Protocol Docusate Sodium (Colace) 100 mg PO BID [facility] Last Admin: 02/15/18 17:07 Dose: Not Given Doxazosin Mesylate (Cardura) 2 mg PO Q24H [facility] Last Admin: 02/15/18 16:52 Dose: Not Given Famotidine (Pepcid) 40 mg PO HS [facility] Last Admin: 02/14/18 22:17 Dose: Not Given Heparin Sodium (Porcine) (Heparin) 5,000 units SC Q8 [facility]; Protocol Last Admin: 02/15/18 13:22 Dose: Not Given Hydralazine HCl (Apresoline) 10 mg IVP Q6 PRN PRN Reason: Systolic Blood Pressure Last Admin: 02/10/18 07:59 Dose: 10 mg Hydrochlorothiazide (Hydrodiuril) 25 mg PO DAILY [facility] Last Admin: 02/15/18 09:57 Dose: 25 mg Dextrose (Dextrose 5% In Water 1000 Ml) 1,000 mls @ 0 mls/hr IV .Q0M PRN; Protocol PRN Reason: Hypoglycemia Protocol Insulin Detemir (Levemir) 16 unit SC HS [facility] Last Admin: 02/15/18 06:23 Dose: Not Given Insulin Human Lispro (Humalog Low) 0 units SC ACHS [facility]; Protocol Last Admin: 02/15/18 17:05 Dose: 2 unit Losartan Potassium (Cozaar) 100 mg PO DAILY [facility] Last Admin: 02/15/18 09:56 Dose: 100 mg Nitroglycerin (Nitro-Bid 2% Oint) 0 ea TOP Q8H PRN PRN Reason: APPLY IF SYSTOLIC >160 Polyethylene Glycol (Miralax) 17 gm PO BID [facility] Last Admin: 02/15/18 17:07 Dose: Not Given Potassium Chloride (Klor-Con 10) 10 meq PO BRK [facility] Last Admin: 02/15/18 09:57 Dose: 10 meq - Labs Labs: 02/10/18 10:20 02/10/18 10:20 Attending/Attestation - Attestation I have personally seen and examined this patient.: Yes I have fully participated in the care of the patient.: Yes I have reviewed all pertinent clinical information, including history, physical exam and plan: Yes Notes (Text): Patient seen and examined by me with resident at 9:55AM on 02/11/18 with resident. Case including HPI, physical exam, and assessment and plan discussed with resident. Agree with above with following additions/corrections. Patient is a 67-year-old male with past medical history significant for CVA 2 months ago with residual left-sided upper and lower extremity weakness, hypertension, type 2 diabetes, and chronic leg pain that presented to the emergency room after a fall at home. Patient states that he feels ok. Patient has been refusing labs. Patient states they took my blood yesterday, why didnt they take all the blood they needed yesterday. I do not like needles. Patient is denying any chest pain or palpitations. No shortness of breath. No headaches or dizziness. No fevers or chills. No dysuria. No diarrhea or constipation. Physical exam: Gen: Awake and alert lying in bed in no acute distress HEENT: Normocephalic, atraumatic. Extraocular muscles intact, pupils equal reactive. No scleral icterus. Oropharynx is pink and moist. Neck is supple. Cardiovascular: Normal rhythm. Normal S1, S2. No murmurs, rubs, or gallops appreciated Pulmonary: Normal respiratory effort. No rhonchi, rales, or wheezing appreciated. Gastrointestinal: Soft. Nondistended. Nontender. Positive bowel sounds all 4 quadrants, no guarding. Musculoskeletal: Moving all extremities. No calf tenderness. No edema a ppreciated. Central nervous system: AAOx3. Positive left sided weakness when compared to right. Dermatologic: Skin warm and dry. Assessment and plan: Patient is a 67-year-old male with past medical history significant for CVA 2 months ago with residual left-sided upper and lower extremity weakness, hypertension, type 2 diabetes, and chronic leg pain that presented to the emergency room after a fall at home. 1. Mechanical fall. Multiple falls at home. Likely secondary to stroke and recent left sided weakness. Neurology consulted, recommendations appreciated. Head CT per radiologist showed no acute intracranial abnormalities. Carotid ultrasound per radiologist showed bilateral 60-79% ICA stenosis. Head/neck CTA per radiologist shows hypoplastic right A1 ANN segment with intracranial circ ulation otherwise unremarkable, right dominant vertebrobasilar circulation, mild to moderated partially calcified right carotid bulb atherosclerosis extending into the proximal right ICA without significant stenosis. PT recommends rehab Continue ASA, Plavix, and lipitor 2. History of recent CVA with residual left sided weakness. Continue ASA, Plavix, and Lipitor. 3. Hypertension, uncontrolled. Cardiology following, recommendations appreciated. Better controlled now. Continue Cardura, coreg, HCTZ, and cozaar. Continue hydralazine prn. 4. DM2. Continue insulins sliding scale. Continue Levemir. Continue to monitor accuchecks. 5. GI/DVT prophylaxis. Pepcid/heparin 6. Patient is a full code. Case discussed in detail with patient regarding current diagnosis and treatment plan. All questions answered.
[2018-02-11] MEDS: Potassium Chloride 10 mEq ER Tab PO SCH (09:36)
[2018-02-11] MEDS: POLYETHYLENE GLYCOL 3350 17 GM/Dose PACKET PO SCH ×2 (09:38→17:31)
--- NOTE | 2018-02-11 10:24 | CP.PCM.PN ---
<Rosalie French - Last Filed: 02/11/18 18:06> Subjective - Date & Time of Evaluation Date of Evaluation: 02/11/18 Time of Evaluation: 10:24 - Subjective Subjective: Rosalie French PGY2, Neurology Progress Note for Dr Boykin: Patient seen and examined at bedside. Patient agitated overnight, pulled out IV lines 3 times. Patient refused AM labs. Denies fevers, chills, nausea, vomiting, new focal weakness. Objective - Vital Signs/Intake and Output Vital Signs (last 24 hours): Temp Pulse Resp BP Pulse Ox 98.2 F 98 H 22 160/84 H 100 02/11/18 06:00 02/11/18 06:00 02/11/18 06:00 02/11/18 09:37 02/11/18 06:00 Intake and Output: 02/11/18 02/11/18 06:59 18:59 Intake Total 1800 Output Total 3 Balance 1797 - Medications Medications: Current Medications Aspirin (Aspirin Chewable) 81 mg PO DAILY [facility] Last Admin: 02/11/18 09:36 Dose: 81 mg Atorvastatin Calcium (Lipitor) 40 mg PO HS [facility] Last Admin: 02/10/18 21:23 Dose: 40 mg Carvedilol (Coreg) 12.5 mg PO BID [facility] Last Admin: 02/11/18 09:37 Dose: 12.5 mg Clopidogrel Bisulfate (Plavix) 75 mg PO DAILY [facility] Last Admin: 02/11/18 09:37 Dose: 75 mg Dextrose (Dextrose 50% Inj) 0 ml IV STAT PRN; Protocol PRN Reason: Hypoglycemia Protocol Docusate Sodium (Colace) 100 mg PO BID [facility] Last Admin: 02/11/18 09:36 Dose: 100 mg Doxazosin Mesylate (Cardura) 1 mg PO Q24H [facility] Last Admin: 02/11/18 09:36 Dose: 1 mg Famotidine (Pepcid) 40 mg PO HS [facility] Last Admin: 02/10/18 21:23 Dose: 40 mg Heparin Sodium (Porcine) (Heparin) 5,000 units SC Q8 [facility]; Protocol Last Admin: 02/11/18 05:00 Dose: Not Given Hydralazine HCl (Apresoline) 10 mg IVP Q6 PRN PRN Reason: Systolic Blood Pressure Last Admin: 02/10/18 07:59 Dose: 10 mg Hydrochlorothiazide (Hydrodiuril) 25 mg PO DAILY [facility] Last Admin: 02/11/18 09:36 Dose: 25 mg Dextrose (Dextrose 5% In Water 1000 Ml) 1,000 mls @ 0 mls/hr IV .Q0M PRN; Pr otocol PRN Reason: Hypoglycemia Protocol Sodium Chloride (Sodium Chloride 0.9%) 1,000 mls @ 100 mls/hr IV .Q10H [facility] Last Admin: 02/11/18 02:32 Dose: 100 mls/hr Insulin Detemir (Levemir) 16 unit SC HS [facility] Last Admin: 02/10/18 21:59 Dose: Not Given Insulin Human Lispro (Humalog Low) 0 units SC ACHS [facility]; Protocol Last Admin: 02/11/18 07:06 Dose: Not Given Losartan Potassium (Cozaar) 100 mg PO DAILY [facility] Last Admin: 02/11/18 09:36 Dose: 100 mg Polyethylene Glycol (Miralax) 17 gm PO BID [facility] Last Admin: 02/11/18 09:38 Dose: Not Given Potassium Chloride (Klor-Con 10) 10 meq PO BRK [facility] Last Admin: 02/11/18 09:36 Dose: 10 meq - Labs Labs: 02/10/18 10:20 02/10/18 10:20 - Additional Findings Additional findings: - Constitutional Appears: Non-toxic, No Acute Distress - Head Exam Head Exam: ATRAUMATIC, NORMOCEPHALIC - Eye Exam Eye Exam: EOMI, PERRL. absent: Conjunctival injection, Nystagmus, Scleral icterus Pupil Exam: NORMAL ACCOMODATION, PERRL. absent: Fixed, Irregular, Miosis, Unequal - ENT Exam ENT Exam: Mucous Membranes Moist - Neck Exam Neck exam: Positive for: Full Rom - Respiratory Exam Respiratory Exam: Clear to Auscultation Bilateral, NORMAL BREATHING PATTERN. absent: Accessory Muscle Use, Rhonchi, Wheezes, Stridor - Cardiovascular Exam Cardiovascular Exam: RRR, +S1, +S2. absent: Systolic Murmur - GI/Abdominal Exam GI & Abdominal Exam: Normal Bowel Sounds, Soft. absent: Distended, Tenderness - Extremities Exam Extremities exam: Positive for: pedal pulses present. Negative for: calf tenderness, pedal edema - Back Exam Back exam: NORMAL INSPECTION - Neurological Exam Neurological exam: Alert, CN II-XII Intact, Oriented x3 Additional comments: Strength RUE, RLE: 5/5 LUE: contracted, 1/5 LLE: contracted, 2/5. Reflexes LLE patellar: brisk, no clonus. Sensation intact - Psychiatric Exam Psychiatric exam: Normal Affect - Skin Skin Exam: Normal Color, Warm Assessment and Plan - Assessment and Plan (Free Text) Assessment: 67 year old male with PMH CVA with left sided residual weakness (09/2017), HTN, DM, presents for recurrent falls at home: - Needs further rehab for stroke - PT eval recommends acute rehab. - CT head shows no acute findings. - Carotid US results showed b/l 60-79% ICA stenoses. left vertebral artery not visualized, may be occluded. - CTA head/neck showed mild to moderate partially calcified right carotid bulb atheosclerosis extending into proximal right ICA without significant stenosis. hypoplastic right A1 ANN segment with intracranial circulation, otherwise unremarkable. - etoh level negative - f/u cardio recs - falls precautions - Thank you for your consult. Discussed case with Dr Boykin. <León Boykin - Last Filed: 02/15/18 19:35> Objective - Vital Signs/Intake and Output Vital Signs (last 24 hours): Temp Pulse Resp BP Pulse Ox 98.6 F 89 18 154/84 H 100 02/15/18 06:00 02/15/18 06:00 02/15/18 06:00 02/15/18 17:06 02/15/18 06:00 - Medications Medications: Current Medications Aspirin (Aspirin Chewable) 81 mg PO DAILY [facility] Last Admin: 02/15/18 09:57 Dose: 81 mg Atorvastatin Calcium (Lipitor) 40 mg PO HS [facility] Last Admin: 02/14/18 22:17 Dose: Not Given Carvedilol (Coreg) 12.5 mg PO BID [facility] Last Admin: 02/15/18 17:06 Dose: 12.5 mg Clopidogrel Bisulfate (Plavix) 75 mg PO DAILY [facility] Last Admin: 02/15/18 09:56 Dose: 75 mg Dextrose (Dextrose 50% Inj) 0 ml IV STAT PRN; Protocol PRN Reason: Hypoglycemia Protocol Docusate Sodium (Colace) 100 mg PO BID [facility] Last Admin: 02/15/18 17:07 Dose: Not Given Doxazosin Mesylate (Cardura) 2 mg PO Q24H [facility] Last Admin: 02/15/18 16:52 Dose: Not Given Famotidine (Pepcid) 40 mg PO HS [facility] Last Admin: 02/14/18 22:17 Dose: Not Given Heparin Sodium (Porcine) (Heparin) 5,000 units SC Q8 [facility]; Protocol Last Admin: 02/15/18 13:22 Dose: Not Given Hydralazine HCl (Apresoline) 10 mg IVP Q6 PRN PRN Reason: Systolic Blood Pressure Last Admin: 02/10/18 07:59 Dose: 10 mg Hydrochlorothiazide (Hydrodiuril) 25 mg PO DAILY [facility] Last Admin: 02/15/18 09:57 Dose: 25 mg Dextrose (Dextrose 5% In Water 1000 Ml) 1,000 mls @ 0 mls/hr IV .Q0M PRN; Protocol PRN Reason: Hypoglycemia Protocol Insulin Detemir (Levemir) 16 unit SC HS [facility] Last Admin: 02/15/18 06:23 Dose: Not Given Insulin Human Lispro (Humalog Low) 0 units SC ACHS [facility]; Protocol Last Admin: 02/15/18 17:05 Dose: 2 unit Losartan Potassium (Cozaar) 100 mg PO DAILY [facility] Last Admin: 02/15/18 09:56 Dose: 100 mg Nitroglycerin (Nitro-Bid 2% Oint) 0 ea TOP Q8H PRN PRN Reason: APPLY IF SYSTOLIC >160 Polyethylene Glycol (Miralax) 17 gm PO BID [facility] Last Admin: 02/15/18 17:07 Dose: Not Given Potassium Chloride (Klor-Con 10) 10 meq PO BRK [facility] Last Admin: 02/15/18 09:57 Dose: 10 meq - Labs Labs: 02/10/18 10:20 02/10/18 10:20 Attending/Attestation - Attestation I have personally seen and examined this patient.: Yes I have fully participated in the care of the patient.: Yes I have reviewed all pertinent clinical information, including history, physical exam and plan: Yes Notes (Text): 02/15/18 19:35 I agree with the assessment and plan. The patient will need acute rehab.
--- NOTE | 2018-02-11 10:35 | CT ---
Date of service: 02/10/2018 PROCEDURE: CT Angiography of the Brain and Neck. HISTORY: frequent falls, prior CVAs COMPARISON: None available. TECHNIQUE: CT angiography of the intracranial and neck arteries was performed. Coronal and sagittal maximum intensity projection reformatted images were generated. Contrast Dose: Omnipaque 350, 148 cc Radiation dose:Total exam DLP = 604.25 mGy-cm. This CT exam was performed using one or more of the following dose reduction techniques: Automated exposure control, adjustment of the mA and/or kV according to patient size, and/or use of iterative reconstruction technique. FINDINGS: INTERNAL CEREBRAL ARTERIES: Unremarkable. The skull base, petrous, cavernous and supraclinoid segments are bilaterally widely patent. ANTERIOR CEREBRAL ARTERIES: There is a hypoplastic right A1 ANN segment. Normal appearing left ANN A1 segment. Bilateral A2 segments are widely patent. Smaller distal branches unremarkable, as visualized. MIDDLE CEREBRAL ARTERIES: Unremarkable. M1 and M2 segments are widely patent. Perisylvian branches grossly symmetric. POSTERIOR CIRCULATION: Basilar Artery: Unremarkable. Distal Vertebral Arteries: Right dominant vertebrobasilar circulation. Posterior Cerebral Arteries: Unremarkable. Posterior Inferior Cerebellar Arteries: Unremarkable. NECK CTA: Common Carotid arteries: The bilateral common carotid appear patent from their origins to their bifurcations with no significant stenosis appreciated. Mild to moderate partially calcified atherosclerotic plaque is identified at the right carotid bulb and proximal right internal carotid artery. No significant stenosis bilaterally. No evidence to suggest common carotid artery dissection. Internal Carotid arteries: No significant stenosis is appreciated throughout the cervical internal carotid artery segments bilaterally and there is no evidence of dissection either. External Carotid arteries: Appear unremarkable bilaterally. Vertebral arteries: The bilateral vertebral arteries appear normal in caliber from their origins to their distal cervical segments. No significant stenosis or definite pattern of dissection. ANEURYSM/ VASCULAR MALFORMATIONS: None. OTHER FINDINGS: None. IMPRESSION: Hypoplastic right A1 ANN segment with intracranial circulation otherwise unremarkable. Right dominant vertebrobasilar circulation. [id number] partially calcified right carotid bulb atherosclerosis extending into the proximal right ICA without significant stenosis.
--- NOTE | 2018-02-11 16:14 | PN ---
DATE: 02/11/2018 FOLLOWUP SUBJECTIVE: The patient denies chest pain, dizziness or shortness breath. PHYSICAL EXAMINATION: VITAL SIGNS: Blood pressure 160/84, heart rate 98, temperature 98.2, respiration 22. HEENT: Normocephalic. CHEST: Clear. HEART: S1 and S2 regular. EXTREMITIES: No edema. Head and neck CT angio revealed hypoplastic right ANN segment with intracranial circulation otherwise unremarkable. Right dominant vertebrobasilar circulation. [id number] partially calcified right carotid bulb atherosclerosis extending into the proximal right internal carotid artery without significant stenosis. ASSESSMENT: 1. Uncontrolled hypertension. 2. History of cerebrovascular accident with residual left hemiparesis. 3. Recurrent falls. RECOMMENDATIONS: Case was discussed with the medical team. The patient did have his most recent admission at [facility], but under this current medical record number. At that time, echocardiography study revealed normal ejection fraction and there was no mentioning of any intracavitary thrombus. Continue hydralazine 10 mg intravenously every 6 hours p.r.n., aspirin 81 mg once a day, Cardura 1 mg daily, Coreg 12.5 mg twice a day, Cozaar 100 mg once a day, heparin 5000 units every 8 hours, hydrochlorothiazide 25 mg once a day, Klor-Con at 10 mEq once a day, Lipitor at 40 mg once a day, Plavix 75 mg once a day. Inderjit Henson MD
--- NOTE | 2018-02-11 16:18 | CARD ---
APPROVED REPORT Date of service: 02/11/2018 EXAM: Two-dimensional and M-mode echocardiogram with Doppler and color Doppler. INDICATION CVA/TIA 2D DIMENSIONS Left Atrium (2D)3.8 (1.6-4.0cm)IVSd1.4 (0.7-1.1cm) LVDd4.0 (3.9-5.9cm)PWd1.7 (0.7-1.1cm) LVDs2.9 (2.5-4.0cm)FS (%) 28.0 % LVEF (%)54.8 (>50%) M-Mode DIMENSIONS Aortic Root2.90 (2.2-3.7cm)Aortic Cusp Exc.1.80 (1.5-2.0cm) Aortic Valve AoV Peak Avtddgqn781.0cm/Shanti Peak GR.8mmHg Mitral Valve E/A ratio0.0 TDI E/Lateral E'0.0E/Medial E'0.0 Tricuspid Valve TR Peak [id number] [id number] Peak Gr.7mmHg [id number] LEFT VENTRICLE The left ventricle is normal size. There is mild concentric left ventricular hypertrophy. The left ventricular function is normal. The left ventricular ejection fraction is within the normal range. There is normal LV segmental wall motion. Transmitral Doppler flow pattern is Grade I-abnormal relaxation pattern. RIGHT VENTRICLE The right ventricle is normal size. There is normal right ventricular wall thickness. The right ventricular systolic function is normal. ATRIA The left atrium size is normal. The right atrium size is normal. The interatrial septum is intact with no evidence for an atrial septal defect. AORTIC VALVE The aortic valve is not well visualized. No aortic regurgitation is present. There is no aortic valvular stenosis. MITRAL VALVE The mitral valve is mildly thickened. Mitral regurgitation is trace to mild. There is no mitral valve stenosis. TRICUSPID VALVE The tricuspid valve is normal in structure. There is no tricuspid valve regurgitation noted. PULMONIC VALVE The pulmonary valve is normal in structure. There is no pulmonic valvular regurgitation. GREAT VESSELS The aortic root is normal in size. PERICARDIAL EFFUSION There is a trace loculated anterior pericardial effusion. <Conclusion> There is mild concentric left ventricular hypertrophy. The left ventricular function is normal. The left ventricular ejection fraction is within the normal range. Transmitral Doppler flow pattern is Grade I-abnormal relaxation pattern. Mitral regurgitation is trace to mild.
[2018-02-11] MEDS: Insulin Detemir 100 units/ml Vial (Levemir) SC SCH (21:54)
[2018-02-12] MEDS: Sodium Chloride 0.9% 1,000 ML IV SCH (05:15)
[2018-02-12] MEDS: Insulin Lispro (humaLOG) LOW Coverage SC SCH ×4 (06:36→23:28)
[2018-02-12] MEDS: Potassium Chloride 10 mEq ER Tab PO SCH (10:55)
[2018-02-12] MEDS: POLYETHYLENE GLYCOL 3350 17 GM/Dose PACKET PO SCH ×2 (10:57→18:47)
--- NOTE | 2018-02-12 13:54 | PN ---
DATE: 02/12/2018 FOLLOWUP SUBJECTIVE: The patient denies any chest pain or headache and is not experiencing shortness of breath. PHYSICAL EXAMINATION: VITAL SIGNS: Blood pressure 157/83, heart rate 89, temperature 97.7, respirations 19. HEENT: Normocephalic. CHEST: Clear. HEART: S1 and S2 regular. EXTREMITIES: There is no edema. NEUROLOGICAL: Left hemiplegia. LABORATORY DATA: Today's blood sugar is 125. Echocardiography study performed yesterday revealed mild concentric left ventricular hypertrophy with normal ejection fraction, grade 1 abnormal relaxation pattern, trace to mild mitral insufficiency. ASSESSMENT: 1. Status post cerebrovascular accident with recent left hemiplegia. 2. Recurrent falls. 3. Uncontrolled diabetes mellitus. 4. Hypertension. RECOMMENDATIONS: Continue hydralazine 10 mg intravenously every 6 hours p.r.n., aspirin 81 mg once a day, Cardura 1 mg daily, Coreg 12.5 mg twice a day, Cozaar 100 mg once a day, subcutaneous heparin 5000 units every 8 hours, Klor-Con at 10 mEq once a day, hydrochlorothiazide 25 mg once a day, Plavix 75 mg once a day. The case was discussed with the DISK SHARPENER and the patient and the plan is to transfer the patient to acute rehab. Inderjit Henson MD
--- NOTE | 2018-02-12 15:48 | CP.PCM.PN ---
<Thomas Jacobo - Last Filed: 02/12/18 15:40> Subjective - Date & Time of Evaluation Date of Evaluation: 02/12/18 Time of Evaluation: 15:40 - Subjective Subjective: Thomas Jacobo DO PGY1 - Internal Medicine [facility] - Hospital Progress Note Patient was seen this morning at bedside. Overnight no acute events were reported however he was again refusing lab work; subsequently he was refusing exam as well this morning. Patient agitated and repetitive. Expressed that he wanted to make himself fall. ROS was unobtainable Objective - Vital Signs/Intake and Output Vital Signs (last 24 hours): Temp Pulse Resp BP Pulse Ox 98.4 F 92 H 18 152/88 H 99 02/12/18 14:00 02/12/18 14:00 02/12/18 14:00 02/12/18 14:00 02/12/18 14:00 Intake and Output: 02/12/18 02/12/18 06:59 18:59 Intake Total 0 Balance 0 - Medications Medications: Current Medications Aspirin (Aspirin Chewable) 81 mg PO DAILY [facility] Last Admin: 02/12/18 10:56 Dose: 81 mg Atorvastatin Calcium (Lipitor) 40 mg PO HS [facility] Last Admin: 02/11/18 21:55 Dose: 40 mg Carvedilol (Coreg) 12.5 mg PO BID [facility] Last Admin: 02/12/18 10:56 Dose: 12.5 mg Clopidogrel Bisulfate (Plavix) 75 mg PO DAILY [facility] Last Admin: 02/12/18 10:55 Dose: 75 mg Dextrose (Dextrose 50% Inj) 0 ml IV STAT PRN; Protocol PRN Reason: Hypoglycemia Protocol Docusate Sodium (Colace) 100 mg PO BID [facility] Last Admin: 02/12/18 10:55 Dose: 100 mg Doxazosin Mesylate (Cardura) 1 mg PO Q24H [facility] Last Admin: 02/12/18 10:55 Dose: 1 mg Famotidine (Pepcid) 40 mg PO HS [facility] Last Admin: 02/11/18 21:56 Dose: 40 mg Heparin Sodium (Porcine) (Heparin) 5,000 units SC Q8 [facility]; Protocol Last Admin: 02/12/18 13:18 Dose: Not Given Hydralazine HCl (Apresoline) 10 mg IVP Q6 PRN PRN Reason: Systolic Blood Pressure Last Admin: 02/10/18 07:59 Dose: 10 mg Hydrochlorothiazide (Hydrodiuril) 25 mg PO DAILY [facility] Last Admin: 02/12/18 10:56 Dose: 25 mg Dextrose (Dextrose 5% In Water 1000 Ml) 1,000 mls @ 0 mls/hr IV .Q0M PRN; Henok col PRN Reason: Hypoglycemia Protocol Sodium Chloride (Sodium Chloride 0.9%) 1,000 mls @ 100 mls/hr IV .Q10H [facility] Last Admin: 02/12/18 05:15 Dose: Not Given Insulin Detemir (Levemir) 16 unit SC HS [facility] Last Admin: 02/11/18 21:54 Dose: Not Given Insulin Human Lispro (Humalog Low) 0 units SC ACHS [facility]; Protocol Last Admin: 02/12/18 11:30 Dose: Not Given Losartan Potassium (Cozaar) 100 mg PO DAILY [facility] Last Admin: 02/12/18 11:03 Dose: 100 mg Polyethylene Glycol (Miralax) 17 gm PO BID [facility] Last Admin: 02/12/18 10:57 Dose: 17 gm Potassium Chloride (Klor-Con 10) 10 meq PO BRK [facility] Last Admin: 02/12/18 10:55 Dose: 10 meq - Labs Labs: 02/10/18 10:20 02/10/18 10:20 PATIENT REFUSED PHYSICAL EXAM Assessment and Plan - Assessment and Plan (Free Text) Assessment: 67 year old male with PMHx CVA L sided residual weakness, HTN, DM, who presents after recent fall at home. Patient has had multiple ED visits over past week. PT luz maria completed recommend discharge to acute rehab. Patient was given list of acute rehab facilities and asked to choose. Plan: Mechanical falls 2/2 arrythmia vs vertebrobasilar insufficiency vs orthostatics vs electrolyte abnormality vs infection CT head without contrast reviewed by radiologist, shows: there are been several infarcts. There is an infarct within the left frontal lobe which appears nonrecent secondary to the lack of mass effect and sharp margins. there is a moderately large poorly defined right lacunar infarct without hemorrhage which descends along the white matter tracts. there is volume loss in the right cerebral hemisphere resulting in asymmetric lateral ventricles. there is no intracranial hemorrhage, subdural collections, or midline shift. CTA head/neck - unremarkable Carotid + Vertebral Duplex - 60-79% Bilateral stenosis Seizure and Fall Precautions, PT -Can benefit from acute rehab OT - reccs pending Neuro consulted - Dr. Boykin- recommendations: Further rehab for stroke C/w -ASA 81, Plavix 75mg PO daily, Lipitor 40mg PO Uncontrolled HTN 190/110 shortly after admission; BP Improving 160s/90 C/w : HCTZ 25 qd., Cozaar 100 qd, Coreg 12.5 BID, Cadura 1 QD Hydralazine 10mg Q6 IVP prn ECHO EF 55% - 02/11/2018 Cardiology consulted - Dr. Henson- recommendations appreciated Constipation: Mialax + Colace PRN Diabetes Levemir 16HS + ISS Low - Glucose well controlled Education and supply tech referral consulted [facility] GI/DVT Ppx Heparin Pepcid 40 Dispo: Will DC to acute rehab once medically optimized. Patient seen, examined, and discussed w/ attending physician Dr. Gris Jacobo DO PGY1 - Internal Medicine [facility] - Pager [phone] <Gris Jacobo R - Last Filed: 02/15/18 20:16> Objective - Vital Signs/Intake and Output Vital Signs (last 24 hours): Temp Pulse Resp BP Pulse Ox 98.6 F 89 18 154/84 H 100 02/15/18 06:00 02/15/18 06:00 02/15/18 06:00 02/15/18 17:06 02/15/18 06:00 - Medications Medications: Current Medications Aspirin (Aspirin Chewable) 81 mg PO DAILY [facility] Last Admin: 02/15/18 09:57 Dose: 81 mg Atorvastatin Calcium (Lipitor) 40 mg PO HS [facility] Last Admin: 02/14/18 22:17 Dose: Not Given Carvedilol (Coreg) 12.5 mg PO BID [facility] Last Admin: 02/15/18 17:06 Dose: 12.5 mg Clopidogrel Bisulfate (Plavix) 75 mg PO DAILY [facility] Last Admin: 02/15/18 09:56 Dose: 75 mg Dextrose (Dextrose 50% Inj) 0 ml IV STAT PRN; Protocol PRN Reason: Hypoglycemia Protocol Docusate Sodium (Colace) 100 mg PO BID [facility] Last Admin: 02/15/18 17:07 Dose: Not Given Doxazosin Mesylate (Cardura) 2 mg PO Q24H [facility] Last Admin: 10/15/18 16:52 Dose: Not Given Famotidine (Pepcid) 40 mg PO HS [facility] Last Admin: 02/14/18 22:17 Dose: Not Given Heparin Sodium (Porcine) (Heparin) 5,000 units SC Q8 [facility]; Protocol Last Admin: 02/15/18 13:22 Dose: Not Given Hydralazine HCl (Apresoline) 10 mg IVP Q6 PRN PRN Reason: Systolic Blood Pressure Last Admin: 02/10/18 07:59 Dose: 10 mg Hydrochlorothiazide (Hydrodiuril) 25 mg PO DAILY [facility] Last Admin: 02/15/18 09:57 Dose: 25 mg Dextrose (Dextrose 5% In Water 1000 Ml) 1,000 mls @ 0 mls/hr IV .Q0M PRN; Protocol PRN Reason: Hypoglycemia Protocol Insulin Detemir (Levemir) 16 unit SC HS [facility] Last Admin: 02/15/18 06:23 Dose: Not Given Insulin Human Lispro (Humalog Low) 0 units SC ACHS [facility]; Protocol Last Admin: 02/15/18 17:05 Dose: 2 unit Losartan Potassium (Cozaar) 100 mg PO DAILY [facility] Last Admin: 02/15/18 09:56 Dose: 100 mg Nitroglycerin (Nitro-Bid 2% Oint) 0 ea TOP Q8H PRN PRN Reason: APPLY IF SYSTOLIC >160 Polyethylene Glycol (Miralax) 17 gm PO BID [facility] Last Admin: 02/15/18 17:07 Dose: Not Given Potassium Chloride (Klor-Con 10) 10 meq PO BRK [facility] Last Admin: 02/15/18 09:57 Dose: 10 meq - Labs Labs: 02/10/18 10:20 02/10/18 10:20 Attending/Attestation - Attestation I have personally seen and examined this patient.: Yes I have fully participated in the care of the patient.: Yes I have reviewed all pertinent clinical information, including history, physical exam and plan: Yes Notes (Text): Patient seen and examined by me with resident at 12:10PM on 02/12/18 with resident. Case including HPI, physical exam, and assessment and plan discussed with resident. Agree with above with following additions/corrections. Patient is a 67-year-old male with past medical history significant for CVA 2 months ago with residual left-sided upper and lower extremity weakness, hypertension, type 2 diabetes, and chronic leg pain that presented to the emergency room after a fall at home. Patient states that he feels fine. Patient refusing blood work and physical exam. Importance of these things discussed in detail with patient. Patient still refusing. Patient states he wants someone to carry me to the bathroom to use the bathroom. Explained to patient that this is dangerous for both patient and resident care technician. Patient is refusing to answer any other questions. Physical exam Gen: Awake and alert lying in bed in no acute distress Patient refusing physical exam. Assessment and plan: Patient is a 67-year-old male with past medical history significant for CVA 2 months ago with residual left-sided upper and lower extremity weakness, hypertension, type 2 diabetes, and chronic leg pain that presented to the emergency room after a fall at home. 1. Mechanical fall. Multiple falls at home. Neurology following, recommendations appreciated. Head CT per radiologist showed no acute intracranial abnormalities. Carotid ultrasound per radiologist showed bilateral 60-79% ICA stenosis. H ead/neck CTA per radiologist shows hypoplastic right A1 ANN segment with intracranial circulation otherwise unremarkable, right dominant vertebrobasilar circulation, mild to moderated partially calcified right carotid bulb atherosclerosis extending into the proximal right ICA without significant jason nosis. PT recommends rehab. Pending rehab placement. Continue ASA, Plavix, and lipitor 2. History of recent CVA with residual left sided weakness. Continue ASA, Plavix, and Lipitor. 3. Hypertension. Cardiology following, recommendations appreciated. Better controlled. Continue Cardura, coreg, HCTZ, and cozaar. Continue hydralazine prn. 4. DM2. Continue insulins sliding scale. Continue Levemir. Continue to monitor accuchecks. 5. GI/DVT prophylaxis. Pepcid/heparin 6. Patient is a full code. Case discussed in detail with patient regarding current diagnosis and treatment plan. All questions answered.
[2018-02-12] MEDS: Insulin Detemir 100 units/ml Vial (Levemir) SC SCH (23:33)
[2018-02-13] MEDS: Insulin Lispro (humaLOG) LOW Coverage SC SCH ×3 (08:00→18:29)
[2018-02-13] MEDS: Potassium Chloride 10 mEq ER Tab PO SCH (08:21)
[2018-02-13] MEDS: POLYETHYLENE GLYCOL 3350 17 GM/Dose PACKET PO SCH ×2 (09:07→18:53)
--- NOTE | 2018-02-13 17:48 | CP.PCM.PN ---
Subjective - Date & Time of Evaluation Date of Evaluation: 02/13/18 Time of Evaluation: 17:44 - Subjective Subjective: Thomas Jacobo DO PGY1 - Internal Medicine [facility] - Hospital Progress Note Patient was seen and examined at bedside this AM Still refusing AM lab draws Voices no complaints at this time Remainder of 12 system ROS is negative at this time. Objective - Vital Signs/Intake and Output Vital Signs (last 24 hours): Temp Pulse Resp BP Pulse Ox 98.4 F 72 20 167/98 H 99 02/13/18 14:00 02/13/18 14:00 02/13/18 14:00 02/13/18 14:00 02/13/18 14:00 - Medications Medications: Current Medications Aspirin (Aspirin Chewable) 81 mg PO DAILY [facility] Last Admin: 02/13/18 09:07 Dose: 81 mg Atorvastatin Calcium (Lipitor) 40 mg PO HS [facility] Last Admin: 02/12/18 23:28 Dose: 40 mg Carvedilol (Coreg) 12.5 mg PO BID [facility] Last Admin: 02/13/18 09:08 Dose: 12.5 mg Clopidogrel Bisulfate (Plavix) 75 mg PO DAILY [facility] Last Admin: 02/13/18 09:07 Dose: 75 mg Dextrose (Dextrose 50% Inj) 0 ml IV STAT PRN; Protocol PRN Reason: Hypoglycemia Protocol Docusate Sodium (Colace) 100 mg PO BID [facility] Last Admin: 02/13/18 09:07 Dose: 100 mg Doxazosin Mesylate (Cardura) 1 mg PO Q24H [facility] Last Admin: 02/13/18 08:21 Dose: 1 mg Famotidine (Pepcid) 40 mg PO HS [facility] Last Admin: 02/12/18 23:28 Dose: 40 mg Heparin Sodium (Porcine) (Heparin) 5,000 units SC Q8 [facility]; Protocol Last Admin: 02/13/18 14:30 Dose: 5,000 units Hydralazine HCl (Apresoline) 10 mg IVP Q6 PRN PRN Reason: Systolic Blood Pressure Last Admin: 02/10/18 07:59 Dose: 10 mg Hydrochlorothiazide (Hydrodiuril) 25 mg PO DAILY [facility] Last Admin: 02/13/18 09:06 Dose: 25 mg Dextrose (Dextrose 5% In Water 1000 Ml) 1,000 mls @ 0 mls/hr IV .Q0M PRN; Protocol PRN Reason: Hypoglycemia Protocol Sodium Chloride (Sodium Chloride 0.9%) 1,000 mls @ 100 mls/hr IV .Q10H [facility] Last Admin: 02/12/18 05:15 Dose: Not Given Insulin Detemir (Levemir) 16 unit SC HS [facility] Last Admin: 02/12/18 23:33 Dose: 16 units Insulin Human Lispro (Humalog Low) 0 units SC ACHS [facility]; Protocol Last Admin: 02/13/18 12:03 Dose: Not Given Losartan Potassium (Cozaar) 100 mg PO DAILY [facility] Last Admin: 02/13/18 09:07 Dose: 100 mg Polyethylene Glycol (Miralax) 17 gm PO BID [facility] Last Admin: 02/13/18 09:07 Dose: 17 gm Potassium Chloride (Klor-Con 10) 10 meq PO BRK [facility] Last Admin: 02/13/18 08:21 Dose: 10 meq - Labs Labs: 02/10/18 10:20 02/10/18 10:20 - Constitutional Appears: Well, Non-toxic, No Acute Distress, - Head Exam Head Exam: ATRAUMATIC, NORMOCEPHALIC Additional comments: R sided facial droop - Eye Exam Eye Exam: EOMI, Normal appearance, PERRL. absent: Scleral icterus - ENT Exam ENT Exam: Mucous Membranes Moist - Respiratory Exam Respiratory Exam: Clear to Ausculation Bilateral, NORMAL BREATHING PATTERN. absent: Rales, Rhonchi, Wheezes - Cardiovascular Exam Cardiovascular Exam: REGULAR RHYTHM, RRR, +S1, +S2. absent: Murmur - GI/Abdominal Exam GI & Abdominal Exam: Soft, Normal Bowel Sounds. absent: Tenderness - Extremities Exam Additional comments: LUE weakness 0/5 gross strength LLE has 1/5 gross strength Sensation is intact RUE/LUE 5/5 gross strength Distal pulses 2+ BL ; No edema Assessment and Plan - Assessment and Plan (Free Text) Assessment: 67 year old male with PMHx CVA L sided residual weakness, HTN, DM, who presents after recent fall at home. Patient has had multiple ED visits over past week. PT luz maria completed recommend discharge to acute rehab. Patient was given list of acute rehab facilities and asked to choose. Still awaiting placement at this time. Plan: Mechanical falls 2/2 arrythmia vs vertebrobasilar insufficiency vs orthostatics vs electrolyte abnormality vs infection CT head without contrast reviewed by radiologist, shows: there are been several infarcts. There is an infarct within the left frontal lobe which appears nonrecent secondary to the lack of mass effect and sharp margins. there is a moderately large poorly defined right lacunar infarct without he morrhage which descends along the white matter tracts. there is volume loss in the right cerebral hemisphere resulting in asymmetric lateral ventricles. there is no intracranial hemorrhage, subdural collections, or midline shift. CTA head/neck - unremarkable Carotid + Vertebral Duplex - 60-79% Bilateral stenosis Seizure and Fall Precautions, PT -Can benefit from acute rehab OT - reccs pending Neuro consulted - Dr. Boykin- recommendations: Further rehab for stroke C/w -ASA 81, Plavix 75mg PO daily, Lipitor 40mg PO Uncontrolled HTN 190/110 shortly after admission; BP unchaged from day prior 160s/100 C/w : HCTZ 25 qd., Cozaar 100 qd, Coreg 12.5 BID, Cadura 1 QD Hydralazine 10mg Q6 IVP prn ECHO EF 55% - 02/11/2018 Cardiology consulted - Dr. Henson- recommendations appreciated Constipation: Mialax + Colace PRN Diabetes Levemir 16HS + ISS Low - Glucose well controlled Education and mortgage loan assistant referral consulted [facility] GI/DVT Ppx Heparin Pepcid 40 Dispo: Will DC to acute rehab once medically optimized. Patient seen, examined, and discussed w/ attending physician Dr. Jennifer Jacobo DO PGY1 - Internal Medicine [facility] - Pager [phone]
--- NOTE | 2018-02-13 17:49 | CP.PCM.PN ---
Subjective - Date & Time of Evaluation Date of Evaluation: 02/13/18 Time of Evaluation: 17:40 Objective - Vital Signs/Intake and Output Vital Signs (last 24 hours): Temp Pulse Resp BP Pulse Ox 98.4 F 72 20 167/98 H 99 02/13/18 14:00 02/13/18 14:00 02/13/18 14:00 02/13/18 14:00 02/13/18 14:00 - Medications Medications: Current Medications Aspirin (Aspirin Chewable) 81 mg PO DAILY [facility] Last Admin: 02/13/18 09:07 Dose: 81 mg Atorvastatin Calcium (Lipitor) 40 mg PO HS [facility] Last Admin: 02/12/18 23:28 Dose: 40 mg Carvedilol (Coreg) 12.5 mg PO BID [facility] Last Admin: 02/13/18 09:08 Dose: 12.5 mg Clopidogrel Bisulfate (Plavix) 75 mg PO DAILY [facility] Last Admin: 02/13/18 09:07 Dose: 75 mg Dextrose (Dextrose 50% Inj) 0 ml IV STAT PRN; Protocol PRN Reason: Hypoglycemia Protocol Docusate Sodium (Colace) 100 mg PO BID [facility] Last Admin: 02/13/18 09:07 Dose: 100 mg Doxazosin Mesylate (Cardura) 1 mg PO Q24H [facility] Last Admin: 02/13/18 08:21 Dose: 1 mg Famotidine (Pepcid) 40 mg PO HS [facility] Last Admin: 02/12/18 23:28 Dose: 40 mg Heparin Sodium (Porcine) (Heparin) 5,000 units SC Q8 [facility]; Protocol Last Admin: 02/13/18 14:30 Dose: 5,000 units Hydralazine HCl (Apresoline) 10 mg IVP Q6 PRN PRN Reason: Systolic Blood Pressure Last Admin: 02/10/18 07:59 Dose: 10 mg Hydrochlorothiazide (Hydrodiuril) 25 mg PO DAILY [facility] Last Admin: 02/13/18 09:06 Dose: 25 mg Dextrose (Dextrose 5% In Water 1000 Ml) 1,000 mls @ 0 mls/hr IV .Q0M PRN; Protocol PRN Reason: Hypoglycemia Protocol Sodium Chloride (Sodium Chloride 0.9%) 1,000 mls @ 100 mls/hr IV .Q10H [facility] Last Admin: 02/12/18 05:15 Dose: Not Given Insulin Detemir (Levemir) 16 unit SC HS [facility] Last Admin: 02/12/18 23:33 Dose: 16 units Insulin Human Lispro (Humalog Low) 0 units SC [facility]; Protocol Last Admin: 02/13/18 12:03 Dose: Not Given Losartan Potassium (Cozaar) 100 mg PO DAILY [facility] Last Admin: 02/13/18 09:07 Dose: 100 mg Polyethylene Glycol (Miralax) 17 gm PO BID [facility] Last Admin: 02/13/18 09:07 Dose: 17 gm Potassium Chloride (Klor-Con 10) 10 meq PO BRK [facility] Last Admin: 02/13/18 08:21 Dose: 10 meq - Labs Labs: 02/10/18 10:20 02/10/18 10:20
[2018-02-13] MEDS: Sodium Chloride 0.9% 1,000 ML IV SCH (18:55)
[2018-02-14] MEDS: Insulin Lispro (humaLOG) LOW Coverage SC SCH ×5 (06:53→22:17)
[2018-02-14] MEDS: Insulin Detemir 100 units/ml Vial (Levemir) SC SCH (06:54)
[2018-02-14] MEDS: POLYETHYLENE GLYCOL 3350 17 GM/Dose PACKET PO SCH ×3 (11:01→17:47)
[2018-02-14] MEDS: Potassium Chloride 10 mEq ER Tab PO SCH (11:04)
[2018-02-14] MEDS ORDERED: Nitroglycerin 2% Ointment Foilpak UD TOP PRN ×2 (11:44→12:00)
--- NOTE | 2018-02-14 18:54 | CP.PCM.PN ---
Subjective - Date & Time of Evaluation Date of Evaluation: 02/14/18 Time of Evaluation: 18:50 - Subjective Subjective: Thomas Jacobo DO PGY1 - Internal Medicine Yield Clerk - Hospital Progress Note Patient seen and examined at bedside this morning No acute events reported overnight; No acute issues voiced by patient at this time. Refuses lab draws; Refusing medications; Wants to start getting stronger ROS negative Objective - Vital Signs/Intake and Output Vital Signs (last 24 hours): Temp Pulse Resp BP Pulse Ox 98.5 F 96 H 20 137/92 H 99 02/14/18 14:00 02/14/18 17:40 02/14/18 14:00 02/14/18 17:40 02/14/18 14:00 Intake and Output: 02/14/18 02/14/18 06:59 18:59 Intake Total 120 800 Balance 120 800 - Medications Medications: Current Medications Aspirin (Aspirin Chewable) 81 mg PO DAILY [facility] Last Admin: 02/14/18 11:03 Dose: 81 mg Atorvastatin Calcium (Lipitor) 40 mg PO HS [facility] Last Admin: 02/13/18 21:42 Dose: 40 mg Carvedilol (Coreg) 12.5 mg PO BID [facility] Last Admin: 02/14/18 17:40 Dose: 12.5 mg Clopidogrel Bisulfate (Plavix) 75 mg PO DAILY [facility] Last Admin: 02/14/18 11:03 Dose: 75 mg Dextrose (Dextrose 50% Inj) 0 ml IV STAT PRN; Protocol PRN Reason: Hypoglycemia Protocol Docusate Sodium (Colace) 100 mg PO BID [facility] Last Admin: 02/14/18 17:38 Dose: 100 mg Doxazosin Mesylate (Cardura) 1 mg PO Q24H [facility] Last Admin: 02/14/18 11:03 Dose: 1 mg Famotidine (Pepcid) 40 mg PO HS [facility] Last Admin: 02/13/18 21:42 Dose: 40 mg Heparin Sodium (Porcine) (Heparin) 5,000 units SC Q8 [facility]; Protocol Last Admin: 02/14/18 16:46 Dose: Not Given Hydralazine HCl (Apresoline) 10 mg IVP Q6 PRN PRN Reason: Systolic Blood Pressure Last Admin: 02/10/18 07:59 Dose: 10 mg Hydrochlorothiazide (Hydrodiuril) 25 mg PO DAILY [facility] Last Admin: 02/14/18 11:04 Dose: 25 mg Dextrose (Dextrose 5% In Water 1000 Ml) 1,000 mls @ 0 mls/hr IV .Q0M PRN; Protocol PRN Reason: Hypoglycemia Protocol Insulin Detemir (Levemir) 16 unit SC HS [facility] Last Admin: 02/14/18 06:54 Dose: Not Given Insulin Human Lispro (Humalog Low) 0 units SC ACHS [facility]; Protocol Last Admin: 02/14/18 17:41 Dose: Not Given Losartan Potassium (Cozaar) 100 mg PO DAILY [facility] Last Admin: 02/14/18 11:03 Dose: 100 mg Nitroglycerin (Nitro-Bid 2% Oint) 0 ea TOP Q8H PRN PRN Reason: APPLY IF SYSTOLIC >160 Polyethylene Glycol (Miralax) 17 gm PO BID [facility] Last Admin: 02/14/18 17:47 Dose: Not Given Potassium Chloride (Klor-Con 10) 10 meq PO BRK [facility] Last Admin: 02/14/18 11:04 Dose: 10 meq - Labs Labs: 02/10/18 10:20 02/10/18 10:20 - Constitutional Appears: Well, Non-toxic, No Acute Distress, - Head Exam Head Exam: ATRAUMATIC, NORMOCEPHALIC Additional comments: R sided facial droop - Eye Exam Eye Exam: EOMI, Normal appearance, PERRL. absent: Scleral icterus - ENT Exam ENT Exam: Mucous Membranes Moist - Respiratory Exam Respiratory Exam: Clear to Ausculation Bilateral, NORMAL BREATHING PATTERN. absent: Rales, Rhonchi, Wheezes - Cardiovascular Exam Cardiovascular Exam: REGULAR RHYTHM, RRR, +S1, +S2. absent: Murmur - GI/Abdominal Exam GI & Abdominal Exam: Soft, Normal Bowel Sounds. absent: Tenderness - Extremities Exam Additional comments: LUE weakness 0/5 gross strength LLE has 1/5 gross strength Sensation is intact RUE/LUE 5/5 gross strength Distal pulses 2+ BL ; No edema Assessment and Plan - Assessment and Plan (Free Text) Assessment: 67 year old male with PMHx CVA L sided residual weakness, HTN, DM, who presents after recent fall at home. Patient has had multiple ED visits over past week. PT luz maria completed recommend discharge to acute rehab. Patient was given list of acute rehab facilities and asked to choose. Still awaiting placement at this time. Refusing meds intermittently. Plan: Mechanical falls 2/2 arrythmia vs vertebrobasilar insufficiency vs orthostatics vs electrolyte abnormality vs infection CT head without contrast reviewed by radiologist, shows: there are been several infarcts. There is an infarct within the left frontal lobe which appears nonrecent secondary to the lack of mass effect and sharp margins. there is a moderately large poorly defined right lacunar infarct without hemorrhage which descends along the white matter tracts. there is volume loss in the right cerebral hemisphere resulting in asymmetric lateral ventricles. there is no intracranial hemorrhage, subdural collections, or midline shift. CTA head/neck - unremarkable Carotid + Vertebral Duplex - 60-79% Bilateral stenosis Seizure and Fall Precautions, PT -Can benefit from acute rehab OT - reccs pending Neuro consulted - Dr. Boykin- recommendations: Further rehab for stroke C/w -ASA 81, Plavix 75mg PO daily, Lipitor 40mg PO Uncontrolled HTN 190/110 shortly after admission; His BP remains unchanged because he refuses his medications We will start Nitro paste 1/2" strip; Q8H PRN for SBP >160; If SBP <140 the patch will be discontinued C/w : HCTZ 25 qd., Cozaar 100 qd, Coreg 12.5 BID, Cadura 1 QD Hydralazine 10mg Q6 IVP prn ECHO EF 55% - 02/11/2018 Cardiology consulted - Dr. Henson- recommendations appreciated Constipation: Mialax + Colace PRN Diabetes Levemir 16HS + ISS Low - Glucose well controlled Education and finger lift operator referral consulted [facility] GI/DVT Ppx Heparin Pepcid 40 Dispo: Will DC to acute rehab pending placement Patient seen, examined, and discussed w/ attending physician Dr. Jennifer Jacobo DO PGY1 - Internal Medicine Yield Clerk - Pager [phone]
[2018-02-15] MEDS: Insulin Detemir 100 units/ml Vial (Levemir) SC SCH ×3 (06:23→22:35)
[2018-02-15] MEDS: Potassium Chloride 10 mEq ER Tab PO SCH (09:57)
[2018-02-15] MEDS: Insulin Lispro (humaLOG) LOW Coverage SC SCH ×4 (09:58→22:32)
[2018-02-15] MEDS: POLYETHYLENE GLYCOL 3350 17 GM/Dose PACKET PO SCH ×2 (09:59→17:07)
--- NOTE | 2018-02-15 17:07 | PN ---
DATE: 02/15/2018 FOLLOWUP SUBJECTIVE: The patient denies any chest pain or shortness of breath. PHYSICAL EXAMINATION: VITAL SIGNS: Blood pressure 143/117, heart rate 89, temperature 98.6, respirations 18. HEENT: Normocephalic. CHEST: Clear. HEART: S1 and S2 regular. EXTREMITIES: Left arm and leg weakness. LABORATORY DATA: Today's blood sugars are 162, 142 respectively. ASSESSMENT: 1. History of recent cerebrovascular accident with residual left hemiplegia. 2. Uncontrolled hypertension. 3. Recurrent falls. 4. Uncontrolled diabetes mellitus. RECOMMENDATIONS: Continue current aspirin and Plavix therapy. Continue Coreg 12.5 m twice a day, hydrochlorothiazide 25 mg once a day, Cozaar at 100 mg once a day. I increased Cardura to 2 mg orally daily. Inderjit Henson MD
--- NOTE | 2018-02-15 20:23 | CP.PCM.PN ---
<Thomas Jacobo - Last Filed: 02/15/18 20:17> Subjective - Date & Time of Evaluation Date of Evaluation: 02/15/18 Time of Evaluation: 20:17 - Subjective Subjective: Thomas Jacobo DO PGY1 - Internal Medicine Rental Car Deliverer - Hospital Progress Note Patient was seen and examined this morning at bedside; No acute events overnight Voicing no complaints this AM at bedside; still intermittently refusing lab draws and medications; 12 system ROS is negative. Objective - Vital Signs/Intake and Output Vital Signs (last 24 hours): Temp Pulse Resp BP Pulse Ox 98.6 F 89 18 154/84 H 100 02/15/18 06:00 02/15/18 06:00 02/15/18 06:00 02/15/18 17:06 02/15/18 06:00 - Medications Medications: Current Medications Aspirin (Aspirin Chewable) 81 mg PO DAILY [facility] Last Admin: 02/15/18 09:57 Dose: 81 mg Atorvastatin Calcium (Lipitor) 40 mg PO HS [facility] Last Admin: 02/14/18 22:17 Dose: Not Given Carvedilol (Coreg) 12.5 mg PO BID [facility] Last Admin: 02/15/18 17:06 Dose: 12.5 mg Clopidogrel Bisulfate (Plavix) 75 mg PO DAILY [facility] Last Admin: 02/15/18 09:56 Dose: 75 mg Dextrose (Dextrose 50% Inj) 0 ml IV STAT PRN; Protocol PRN Reason: Hypoglycemia Protocol Docusate Sodium (Colace) 100 mg PO BID [facility] Last Admin: 02/15/18 17:07 Dose: Not Given Doxazosin Mesylate (Cardura) 2 mg PO Q24H [facility] Last Admin: 02/15/18 16:52 Dose: Not Given Famotidine (Pepcid) 40 mg PO HS [facility] Last Admin: 02/14/18 22:17 Dose: Not Given Heparin Sodium (Porcine) (Heparin) 5,000 units SC Q8 [facility]; Protocol Last Admin: 02/15/18 13:22 Dose: Not Given Hydralazine HCl (Apresoline) 10 mg IVP Q6 PRN PRN Reason: Systolic Blood Pressure Last Admin: 02/10/18 07:59 Dose: 10 mg Hydrochlorothiazide (Hydrodiuril) 25 mg PO DAILY [facility] Last Admin: 02/15/18 09:57 Dose: 25 mg Dextrose (Dextrose 5% In Water 1000 Ml) 1,000 mls @ 0 mls/hr IV .Q0M PRN; Protocol PRN Reason: Hypoglycemia Protocol Insulin Detemir (Levemir) 16 unit SC HS [facility] Last Admin: 02/15/18 06:23 Dose: Not Given Insulin Human Lispro (Humalog Low) 0 units SC ACHS [facility]; Protocol Last Admin: 02/15/18 17:05 Dose: 2 unit Losartan Potassium (Cozaar) 100 mg PO DAILY [facility] Last Admin: 02/15/18 09:56 Dose: 100 mg Nitroglycerin (Nitro-Bid 2% Oint) 0 ea TOP Q8H PRN PRN Reason: APPLY IF SYSTOLIC >160 Polyethylene Glycol (Miralax) 17 gm PO BID [facility] Last Admin: 02/15/18 17:07 Dose: Not Given Potassium Chloride (Klor-Con 10) 10 meq PO BRK [facility] Last Admin: 02/15/18 09:57 Dose: 10 meq - Labs Labs: 02/10/18 10:20 02/10/18 10:20 - Constitutional Appears: Well, Non-toxic, No Acute Distress, - Head Exam Head Exam: ATRAUMATIC, NORMOCEPHALIC Additional comments: R sided facial droop - Eye Exam Eye Exam: EOMI, Normal appearance, PERRL. absent: Scleral icterus - ENT Exam ENT Exam: Mucous Membranes Moist - Respiratory Exam Respiratory Exam: Clear to Ausculation Bilateral, NORMAL BREATHING PATTERN. absent: Rales, Rhonchi, Wheezes - Cardiovascular Exam Cardiovascular Exam: REGULAR RHYTHM, RRR, +S1, +S2. absent: Murmur - GI/Abdominal Exam GI & Abdominal Exam: Soft, Normal Bowel Sounds. absent: Tenderness - Extremities Exam Additional comments: LUE weakness 0/5 gross strength LLE has 1/5 gross strength Sensation is intact RUE/LUE 5/5 gross strength Distal pulses 2+ BL ; No edema Assessment and Plan - Assessment and Plan (Free Text) Assessment: 67 year old male with PMHx CVA L sided residual weakness, HTN, DM, who presents after recent fall at home. Patient has had multiple ED visits over past week. PT luz maria completed recommend discharge to acute rehab. Patient was given list of acute rehab facilities and asked to choose. Still awaiting placement at this time. Refusing meds intermittently. Plan: Uncontrolled HTN 190/110 shortly after admission; His BP remains unchanged because he refuses his medications Pressures better controlled w/ nitro patch; Started: Doxazosin 2mg Q4 C/w : HCTZ 25 qd., Cozaar 100 qd, Coreg 12.5 BID, Nitro paste 1/2" strip; Q8H PRN for SBP >160; If SBP <140 the patch will be discontinued Hydralazine 10mg Q6 IVP prn ECHO EF 55% - 02/11/2018 Cardiology consulted - Dr. Henson- recommendations appreciated Mechanical falls 2/2 arrythmia vs vertebrobasilar insufficiency vs orthostatics vs electrolyte abnormality vs infection CT head without contrast reviewed by radiologist, shows: there are been several infarcts. There is an infarct within the left frontal lobe which appears nonrecent secondary to the lack of mass effect and sharp margins. there is a moderately large poorly defined right lacunar infarct without hemo rrhage which descends along the white matter tracts. there is volume loss in the right cerebral hemisphere resulting in asymmetric lateral ventricles. there is no intracranial hemorrhage, subdural collections, or midline shift. CTA head/neck - unremarkable Carotid + Vertebral Duplex - 60-79% Bilateral stenosis Seizure and Fall Precautions, PT -Can benefit from acute rehab OT - reccs pending Neuro consulted - Dr. Boykin- recommendations: Further rehab for stroke C/w -ASA 81, Plavix 75mg PO daily, Lipitor 40mg PO Constipation: Mialax + Colace PRN Diabetes Levemir 16HS + ISS Low - Glucose well controlled Education and waste duster referral consulted [facility] GI/DVT Ppx Heparin Pepcid 40 Dispo: Will DC to [facility] helper care; patient and caregiver urged to file for medicaid urgently Patient seen, examined, and discussed w/ attending physician Dr. Hamida Jacobo DO PGY1 - Internal Medicine Rental Car Deliverer - Pager [phone] <Dionna Mei - Last Filed: 02/17/18 17:42> Objective - Vital Signs/Intake and Output Vital Signs (last 24 hours): Temp Pulse Resp BP Pulse Ox 97.9 F 87 20 143/79 97 02/17/18 14:00 02/17/18 14:00 02/17/18 14:00 02/17/18 14:00 02/17/18 14:00 Intake and Output: 02/17/18 02/17/18 06:59 18:59 Intake Total 840 240 Balance 840 240 - Medications Medications: Current Medications Aspirin (Aspirin Chewable) 81 mg PO DAILY [facility] Last Admin: 02/17/18 11:38 Dose: 81 mg Atorvastatin Calcium (Lipitor) 40 mg PO HS [facility] Last Admin: 02/16/18 22:20 Dose: 40 mg Carvedilol (Coreg) 12.5 mg PO BID [facility] Last Admin: 02/17/18 11:38 Dose: 12.5 mg Clopidogrel Bisulfate (Plavix) 75 mg PO DAILY [facility] Last Admin: 02/17/18 11:38 Dose: 75 mg Dextrose (Dextrose 50% Inj) 0 ml IV STAT PRN; Protocol PRN Reason: Hypoglycemia Protocol Docusate Sodium (Colace) 100 mg PO BID [facility] Last Admin: 02/17/18 11:38 Dose: 100 mg Doxazosin Mesylate (Cardura) 2 mg PO Q24H [facility] Last Admin: 02/17/18 11:39 Dose: 2 mg Famotidine (Pepcid) 40 mg PO HS [facility] Last Admin: 02/16/18 22:20 Dose: 40 mg Heparin Sodium (Porcine) (Heparin) 5,000 units SC Q8 [facility]; Protocol Last Admin: 02/16/18 14:00 Dose: Not Given Hydralazine HCl (Apresoline) 10 mg IVP Q6 PRN PRN Reason: Systolic Blood Pressure Last Admin: 02/10/18 07:59 Dose: 10 mg Hydrochlorothiazide (Hydrodiuril) 25 mg PO DAILY [facility] Last Admin: 02/17/18 11:39 Dose: 25 mg Dextrose (Dextrose 5% In Water 1000 Ml) 1,000 mls @ 0 mls/hr IV .Q0M PRN; Protocol PRN Reason: Hypoglycemia Protocol Insulin Detemir (Levemir) 16 unit SC HS [facility] Last Admin: 02/17/18 08:18 Dose: Not Given Insulin Human Lispro (Humalog Low) 0 units SC ACHS [facility]; Protocol Last Admin: 02/17/18 11:39 Dose: 2 unit Losartan Potassium (Cozaar) 100 mg PO DAILY [facility] Last Admin: 02/17/18 11:39 Dose: 100 mg Nitroglycerin (Nitro-Bid 2% Oint) 0 ea TOP Q8H PRN PRN Reason: APPLY IF SYSTOLIC >160 Polyethylene Glycol (Miralax) 17 gm PO BID [facility] Last Admin: 02/17/18 11:43 Dose: Not Given Potassium Chloride (Klor-Con 10) 10 meq PO BRK [facility] Last Admin: 02/17/18 08:35 Dose: 10 meq - Labs Labs: 02/10/18 10:20 02/10/18 10:20 Attending/Attestation - Attestation I have personally seen and examined this patient.: Yes I have fully participated in the care of the patient.: Yes I have reviewed all pertinent clinical information, including history, physical exam and plan: Yes Notes (Text): 02/17/18 17:40 attending note; Patient seen and examined with resident. Patient is alert and awake. Not in any acute distress. Tolerating diet well. Patient is a 67-year-old male with past medical history significant for CVA 2 months ago with residual left-sided upper and lower extremity weakness, hyperte nsion, type 2 diabetes, and chronic leg pain that presented to the emergency room after a fall at home. 1. Mechanical fall. Multiple falls at home. Neurology evaluation appreciated. Head CT showed no acute intracranial abnormalities. Carotid ultrasound showed bilateral 60-79% ICA stenosis. Head/neck CTA shows hypoplastic right A1 ANN segment with intracranial circulation otherwise unremarkable, right dominant vertebrobasilar circulation, mild to moderated partially calcified right carotid bulb atherosclerosis extending into the proximal right ICA without significant stenosis. Continue ASA, Plavix, and lipitor . 2. History of recent CVA with residual left sided weakness. Continue ASA, Plavix, and Lipitor. 3. Hypertension. Continue Cardura, coreg, HCTZ, and cozaar. adjust medications as needed. 4. DM2. Continue insulins sliding scale. Continue Levemir. 5. GI/DVT prophylaxis. Pepcid/heparin physical therapy is recommending acute rehabilitation. case discussed with pillowcase cleaner in detail. Case discussed in detail with patient regarding current diagnosis and treatment plan. All questions answered. 02/17/18 17:42
[2018-02-16] MEDS: Potassium Chloride 10 mEq ER Tab PO SCH (09:24)
[2018-02-16] MEDS: Insulin Lispro (humaLOG) LOW Coverage SC SCH ×3 (09:26→17:26)
[2018-02-16] MEDS: POLYETHYLENE GLYCOL 3350 17 GM/Dose PACKET PO SCH ×2 (09:27→17:26)
--- NOTE | 2018-02-16 22:06 | CP.PCM.PN ---
<Thomas Jacobo - Last Filed: 02/16/18 22:02> Subjective - Date & Time of Evaluation Date of Evaluation: 02/16/18 Time of Evaluation: 22:03 - Subjective Subjective: Thomas Jacobo DO PGY1 - Internal Medicine [employer] - Hospital Progress Note Patient was seen and examined this AM at bedside; no acute events overnight Patient educated on labs and need to take medications; patient verbalizes understanding however he refuses when asked. 12 system ROS otherwise negative Objective - Vital Signs/Intake and Output Vital Signs (last 24 hours): Temp Pulse Resp BP Pulse Ox 98.4 F 84 20 132/80 100 02/16/18 06:00 02/16/18 06:00 02/16/18 06:00 02/16/18 17:27 02/16/18 06:00 Intake and Output: 02/16/18 02/17/18 18:59 06:59 Intake Total 600 Balance 600 - Medications Medications: Current Medications Aspirin (Aspirin Chewable) 81 mg PO DAILY [facility] Last Admin: 02/16/18 09:24 Dose: 81 mg Atorvastatin Calcium (Lipitor) 40 mg PO HS [facility] Last Admin: 02/15/18 22:28 Dose: 40 mg Carvedilol (Coreg) 12.5 mg PO BID [facility] Last Admin: 02/16/18 17:27 Dose: 12.5 mg Clopidogrel Bisulfate (Plavix) 75 mg PO DAILY [facility] Last Admin: 02/16/18 09:24 Dose: 75 mg Dextrose (Dextrose 50% Inj) 0 ml IV STAT PRN; Protocol PRN Reason: Hypoglycemia Protocol Docusate Sodium (Colace) 100 mg PO BID [facility] Last Admin: 02/16/18 17:29 Dose: Not Given Doxazosin Mesylate (Cardura) 2 mg PO Q24H [facility] Last Admin: 02/16/18 09:33 Dose: 2 mg Famotidine (Pepcid) 40 mg PO HS [facility] Last Admin: 02/15/18 22:29 Dose: 40 mg Heparin Sodium (Porcine) (Heparin) 5,000 units SC Q8 [facility]; Protocol Last Admin: 02/16/18 14:00 Dose: Not Given Hydralazine HCl (Apresoline) 10 mg IVP Q6 PRN PRN Reason: Systolic Blood Pressure Last Admin: 02/10/18 07:59 Dose: 10 mg Hydrochlorothiazide (Hydrodiuril) 25 mg PO DAILY [facility] Last Admin: 02/16/18 09:25 Dose: 25 mg Dextrose (Dextrose 5% In Water 1000 Ml) 1,000 mls @ 0 mls/hr IV .Q0M PRN; Protocol PRN Reason: Hypoglycemia Protocol Insulin Detemir (Levemir) 16 unit SC HS [facility] Last Admin: 02/15/18 22:35 Dose: Not Given Insulin Human Lispro (Humalog Low) 0 units SC ACHS [facility]; Protocol Last Admin: 02/16/18 17:26 Dose: Not Given Losartan Potassium (Cozaar) 100 mg PO DAILY [facility] Last Admin: 02/16/18 09:23 Dose: 100 mg Nitroglycerin (Nitro-Bid 2% Oint) 0 ea TOP Q8H PRN PRN Reason: APPLY IF SYSTOLIC >160 Polyethylene Glycol (Miralax) 17 gm PO BID [facility] Last Admin: 02/16/18 17:26 Dose: Not Given Potassium Chloride (Klor-Con 10) 10 meq PO BRK [facility] Last Admin: 02/16/18 09:24 Dose: 10 meq - Labs Labs: 02/10/18 10:20 02/10/18 10:20 - Constitutional Appears: Well, Non-toxic, No Acute Distress, - Head Exam Head Exam: ATRAUMATIC, NORMOCEPHALIC Additional comments: R sided facial droop - Eye Exam Eye Exam: EOMI, Normal appearance, PERRL. absent: Scleral icterus - ENT Exam ENT Exam: Mucous Membranes Moist - Respiratory Exam Respiratory Exam: Clear to Ausculation Bilateral, NORMAL BREATHING PATTERN. ab sent: Rales, Rhonchi, Wheezes - Cardiovascular Exam Cardiovascular Exam: REGULAR RHYTHM, RRR, +S1, +S2. absent: Murmur - GI/Abdominal Exam GI & Abdominal Exam: Soft, Normal Bowel Sounds. absent: Tenderness - Extremities Exam Additional comments: LUE weakness 0/5 gross strength LLE has 1/5 gross strength Sensation is intact RUE/LUE 5/5 gross strength Distal pulses 2+ BL ; No edema Assessment and Plan - Assessment and Plan (Free Text) Assessment: 67 year old male with PMHx CVA L sided residual weakness, HTN, DM, who presents after recent fall at home. Patient has had multiple ED visits over past week. PT luz maria completed recommend discharge to acute rehab. Patient is currently pending placement at this time; Is approved by government for skilled nursing placement at this time; continues to refuse placement at options provided? Plan: Uncontrolled HTN 190/110 shortly after admission; BP is much improved at this time Started: Doxazosin 2mg Q24H as per cardio C/w : HCTZ 25 qd., Cozaar 100 qd, Coreg 12.5 BID, Nitro paste 1/2" strip; Q8H PRN for SBP >160; If SBP <140 the patch will be discontinued Hydralazine 10mg Q6 IVP prn ECHO EF 55% - 02/11/2018 Cardiology consulted - Dr. Henson- recommendations appreciated Mechanical falls 2/2 arrythmia vs vertebrobasilar insufficiency vs orthostatics vs electrolyte abnormality vs infection CT head without contrast reviewed by radiologist, shows: there are been several infarcts. There is an infarct within the left frontal lobe which appears nonrecent secondary to the lack of mass effect and sharp margins. there is a moderately large poorly defined right lacunar infarct without he morrhage which descends along the white matter tracts. there is volume loss in the right cerebral hemisphere resulting in asymmetric lateral ventricles. there is no intracranial hemorrhage, subdural collections, or midline shift. CTA head/neck - unremarkable Carotid + Vertebral Duplex - 60-79% Bilateral stenosis Seizure and Fall Precautions, PT -Can benefit from acute rehab OT - reccs pending Neuro consulted - Dr. Boykin- recommendations: Further rehab for stroke C/w -ASA 81, Plavix 75mg PO daily, Lipitor 40mg PO Constipation: Mialax + Colace PRN Diabetes Levemir 16HS + ISS Low - Glucose well controlled Education and plant operations coordinator referral consulted [facility] GI/DVT Ppx Heparin Pepcid 40 Dispo: Will DC to skilled nursing care once patient selects placement option Patient seen, examined, and discussed w/ attending physician Dr. Hamida Jacobo DO PGY1 - Internal Medicine [employer] - Pager [phone] <Dionna Mei - Last Filed: 02/17/18 17:43> Objective - Vital Signs/Intake and Output Vital Signs (last 24 hours): Temp Pulse Resp BP Pulse Ox 97.9 F 87 20 143/79 97 02/17/18 14:00 02/17/18 14:00 02/17/18 14:00 02/17/18 14:00 02/17/18 14:00 Intake and Output: 02/17/18 02/17/18 06:59 18:59 Intake Total 840 240 Balance 840 240 - Medications Medications: Current Medications Aspirin (Aspirin Chewable) 81 mg PO DAILY [facility] Last Admin: 02/17/18 11:38 Dose: 81 mg Atorvastatin Calcium (Lipitor) 40 mg PO HS [facility] Last Admin: 02/16/18 22:20 Dose: 40 mg Carvedilol (Coreg) 12.5 mg PO BID [facility] Last Admin: 02/17/18 11:38 Dose: 12.5 mg Clopidogrel Bisulfate (Plavix) 75 mg PO DAILY [facility] Last Admin: 02/17/18 11:38 Dose: 75 mg Dextrose (Dextrose 50% Inj) 0 ml IV STAT PRN; Protocol PRN Reason: Hypoglycemia Protocol Docusate Sodium (Colace) 100 mg PO BID [facility] Last Admin: 02/17/18 11:38 Dose: 100 mg Doxazosin Mesylate (Cardura) 2 mg PO Q24H [facility] Last Admin: 02/17/18 11:39 Dose: 2 mg Famotidine (Pepcid) 40 mg PO HS [facility] Last Admin: 02/16/18 22:20 Dose: 40 mg Heparin Sodium (Porcine) (Heparin) 5,000 units SC Q8 [facility]; Protocol Last Admin: 02/16/18 14:00 Dose: Not Given Hydralazine HCl (Apresoline) 10 mg IVP Q6 PRN PRN Reason: Systolic Blood Pressure Last Admin: 02/10/18 07:59 Dose: 10 mg Hydrochlorothiazide (Hydrodiuril) 25 mg PO DAILY [facility] Last Admin: 02/17/18 11:39 Dose: 25 mg Dextrose (Dextrose 5% In Water 1000 Ml) 1,000 mls @ 0 mls/hr IV .Q0M PRN; Protocol PRN Reason: Hypoglycemia Protocol Insulin Detemir (Levemir) 16 unit SC HS [facility] Last Admin: 02/17/18 08:18 Dose: Not Given Insulin Human Lispro (Humalog Low) 0 units SC ACHS [facility]; Protocol Last Admin: 02/17/18 11:39 Dose: 2 unit Losartan Potassium (Cozaar) 100 mg PO DAILY [facility] Last Admin: 02/17/18 11:39 Dose: 100 mg Nitroglycerin (Nitro-Bid 2% Oint) 0 ea TOP Q8H PRN PRN Reason: APPLY IF SYSTOLIC >160 Polyethylene Glycol (Miralax) 17 gm PO BID [facility] Last Admin: 02/17/18 11:43 Dose: Not Given Potassium Chloride (Klor-Con 10) 10 meq PO BRK [facility] Last Admin: 02/17/18 08:35 Dose: 10 meq - Labs Labs: 02/10/18 10:20 02/10/18 10:20 Attending/Attestation - Attestation I have personally seen and examined this patient.: Yes I have fully participated in the care of the patient.: Yes I have reviewed all pertinent clinical information, including history, physical exam and plan: Yes Notes (Text): 02/17/18 17:42 attending note; Patient seen and examined with resident. Patient is alert and awake. Not in any acute distress. Tolerating diet well. Patient is a 67-year-old male with past medical history significant for CVA 2 months ago with residual left-sided upper and lower extremity weakness, hypertension, type 2 diabetes, and chronic leg pain that presented to the emergency room after a fall at home. 1. Mechanical fall. Multiple falls at home. Neurology evaluation appreciated. Head CT showed no acute intracranial abnormalities. Carotid ultrasound showed bilateral 60-79% ICA stenosis. Head/neck CTA shows hypoplastic right A1 ANN segment with intracranial circulation otherwise unremarkable, right dominant vertebrobasilar circulation, mild to moderated partially calcified right carotid bulb atherosclerosis extending into the proxim al right ICA without significant stenosis. Continue ASA, Plavix, and lipitor . 2. History of recent CVA with residual left sided weakness. Continue ASA, Plavix, and Lipitor. 3. Hypertension. Continue Cardura, coreg, HCTZ, and cozaar. blood pressure is better controlled. 4. DM2. Continue insulins sliding scale. Continue Levemir. 5. GI/DVT prophylaxis. Pepcid/heparin physical therapy is recommending acute rehabilitation. case discussed with residential case manager in detail. pending placement. Next of kin informed. Case discussed in detail with patient regarding current diagnosis and treatment plan. All questions answered.
[2018-02-17] MEDS: Insulin Lispro (humaLOG) LOW Coverage SC SCH ×4 (08:17→17:48)
[2018-02-17] MEDS: Insulin Detemir 100 units/ml Vial (Levemir) SC SCH (08:18)
[2018-02-17] MEDS: Potassium Chloride 10 mEq ER Tab PO SCH (08:35)
[2018-02-17] MEDS: POLYETHYLENE GLYCOL 3350 17 GM/Dose PACKET PO SCH ×2 (11:40→11:43)
[2018-02-17 15:43] VITALS: BP 143/79; PULSE 87; RESP 20; TEMP 97.9; O2SAT 97
--- NOTE | 2018-02-17 18:33 | CP.PCM.DIS ---
Provider - Provider Date of Admission: 02/10/18 16:10 Attending physician: Dionna Mei MD Primary care physician: NO PRIMARY CARE PROVIDER Hospital Course - Lab Results Lab Results: Most Recent Lab Values WBC 5.9 10^3/ul (4.5-11.0) 02/10/18 10:20 RBC 4.71 10^6/uL (3.5-6.1) 02/10/18 10:20 Hgb 12.8 g/dL (14.0-18.0) L 02/10/18 10:20 Hct 38.8 % (42.0-52.0) L 02/10/18 10:20 MCV 82.4 fl (80.0-105.0) 02/10/18 10:20 MCH 27.2 pg (25.0-35.0) 02/10/18 10:20 MCHC 33.0 g/dl (31.0-37.0) 02/10/18 10:20 RDW 13.3 % (11.5-14.5) 02/10/18 10:20 Plt Count 205 10^3/uL (120.0-450.0) 02/10/18 10:20 MPV 10.2 fl (7.0-11.0) 02/10/18 10:20 Gran % 60.6 % (50.0-68.0) 02/10/18 10:20 Lymph % (Auto) 29.9 % (22.0-35.0) 02/10/18 10:20 Adams % (Auto) 4.6 % (1.0-6.0) 02/10/18 10:20 Eos % (Auto) 4.6 % (1.5-5.0) 02/10/18 10:20 Baso % (Auto) 0.3 % (0.0-3.0) 02/10/18 10:20 Gran # 3.54 (1.4-6.5) 02/10/18 10:20 Lymph # (Auto) 1.8 (1.2-3.4) 02/10/18 10:20 Adams # (Auto) 0.3 (0.1-0.6) 02/10/18 10:20 Eos # (Auto) 0.3 (0.0-0.7) 02/10/18 10:20 Baso # (Auto) 0.02 K/mm3 (0.0-2.0) 02/10/18 10:20 Sodium 140 mmol/L (132-148) 02/10/18 10:20 Potassium 3.6 mmol/L (3.6-5.0) 02/10/18 10:20 Chloride 108 mmol/L (98-107) H 02/10/18 10:20 Carbon Dioxide 25 mmol/L (21-33) 02/10/18 10:20 Anion Gap 10 (10-20) 02/10/18 10:20 BUN 17 mg/dL (7-21) 02/10/18 10:20 Creatinine 0.9 mg/dl (0.8-1.5) 02/10/18 10:20 Est GFR ( Amer) > 60 02/10/18 10:20 Est GFR (Non-Af Amer) > 60 02/10/18 10:20 POC Glucose (mg/dL) 204 mg/dL (65-110) H 02/17/18 15:32 Random Glucose 141 mg/dL (70-110) H 02/10/18 10:20 Hemoglobin A1c 8.9 % (4.2-6.5) H 02/10/18 10:20 Calcium 9.0 mg/dL (8.4-10.5) 02/10/18 10:20 Magnesium 1.8 mg/dL (1.7-2.2) 02/09/18 20:54 Total Bilirubin 0.4 mg/dL (0.2-1.3) 02/10/18 10:20 AST 20 U/L (17-59) 02/10/18 10:20 ALT 21 U/L (7-56) 02/10/18 10:20 Alkaline Phosphatase 71 U/L (38-126) 02/10/18 10:20 Total Creatine Kinase 116 U/L (35-230) 02/09/18 20:54 Troponin I 0.02 ng/mL 02/10/18 10:20 Total Protein 6.9 g/dL (5.8-8.3) 02/10/18 10:20 Albumin 3.6 g/dL (3.0-4.8) 02/10/18 10:20 Globulin 3.4 gm/dL 02/10/18 10:20 Albumin/Globulin Ratio 1.0 (1.1-1.8) L 02/10/18 10:20 Triglycerides 64 mg/dL (35-160) 02/10/18 10:20 Cholesterol 112 mg/dL (130-200) L 02/10/18 10:20 LDL Cholesterol Direct 70 mg/dL (0-129) 02/10/18 10:20 HDL Cholesterol 22 mg/dL (29-60) L 02/10/18 10:20 Alcohol, Quantitative < 10 mg/dL (0-10) 02/10/18 10:20 Discharge Exam - Head Exam Head Exam: ATRAUMATIC, NORMOCEPHALIC Discharge Plan - Discharge Medications Prescriptions: Doxazosin [Cardura] 2 mg PO Q24H 15 Days #15 tab hydroCHLOROthiazide [Hydrodiuril] 25 mg PO DAILY 15 Days #15 tab - Follow Up Plan Condition: GOOD Disposition: REHAB FACILITY/REHAB UNIT Instructions: Diabetes and Diet, Self Care Measures After a Stroke (DC), Hypertension (DC), Fall Prevention (DC) Additional Instructions: You were admitted for a mechanical fall; your fall was due to deconditioning and residual weakness from your stroke Please follow up with your Primary care doctor within 3-5 days of discharge; If you do not have a primary care doctor; please call [phone] and ask to be set up with [facility] Please start taking the following medications: Hydrochlorothiazide 25mg once a day Doxazosin 2mg once a day Please STOP taking the following medications: Doxazoin 1mg once a day (NOTE CHANGE IN DOSE ABOVE) Please continue taking all of your other home medications as prescribed It is strongly advised you take all of your medications on schedule and avoid refusing medications If your symptoms worsen or new concerning symptoms arise please go to the nearest emergency department immediately Referrals: PCP,NO [Primary Care Provider] -
== END 2018-02-17 20:29 | DRG 69 ==
LOC: ED 20:01 → ERH 02-10 00:11 → 5RSO 02-10 02:42 → OBSVTOIN 02-10 16:10
PROVIDERS: ADMIT Hospitalist; ATTEND Internal Medicine
DX: G45.0 Vertebro-basilar artery syndrome (principal); I69.354 Hemiplegia and hemiparesis following cerebral infarction affecting left non-dominant side; I65.23 Occlusion and stenosis of bilateral carotid arteries; I10 Essential (primary) hypertension; E11.65 Type 2 diabetes mellitus with hyperglycemia; F17.200 Nicotine dependence, unspecified, uncomplicated; K59.00 Constipation, unspecified; R29.6 Repeated falls; Z79.4 Long term (current) use of insulin